=== PATIENT | female | born 1965 | race Caucasian/White ===

== ENCOUNTER 2019-12-13 10:49 | Outpatient (REF) | payer OTHER, SELFPAY ==
[2019-12-13 13:17] LABS: Alanine Aminotransferase 27 U/L (0-31); Albumin Level 4.4 g/dL (3.5-5.0); Alkaline Phosphatase 70 U/L (39-117); Anion Gap 16 (12-20); Aspartate Amino Transferase 27 U/L (5-31); Bilirubin Total 0.7 mg/dL (0.0-1.0); Blood Urea Nitrogen 16 mg/dL (9-16); Calcium 9.6 mg/dL (8.4-10.2); Carbon Dioxide 25 mmol/L (22-29); Chloride 102 mmol/L (96-108); Cholesterol 206 mg/dL; Estimated Glomerular Filt Rate > 60; Glucose Fasting 107 mg/dL (60-99); HDL Cholesterol 103 mg/dL; LDL Cholesterol Calculated 72 mg/dl; Potassium 4.4 mmol/l (3.3-5.1); Sodium 139 mmol/L (135-145); Total Protein 6.9 g/dL (6.5-8.0); Triglycerides 156 mg/dL
[2019-12-13 13:34] LABS: Free T4 (Free Thyroxine) 1.05 ng/dL (0.71-1.85); Thyroid Stimulating Hormone 0.56 mIU/mL (0.32-4.0)
[2019-12-13 13:54] LABS: Folate 6.8 ng/mL (> or = 4.0); Vitamin B12 245 pg/mL (200-900)
== END 2019-12-13 10:50 | disposition home or self-care (01) ==
LOC: HO.MANLDS 10:49
PROVIDERS: PCP Internal Medicine; Visit Provider Internal Medicine
DX: Z00.01 Encounter for general adult medical examination with abnormal findings (principal); E03.9 Hypothyroidism, unspecified
CPT/HCPCS: 80053; 80061; 82306; 82607; 82746; 83735; 84439; 84443

== ENCOUNTER 2021-09-10 15:11 | Outpatient (REF) | payer OTHER, SELFPAY ==
[2021-09-10 19:04] LABS: MANUAL DIFF FLAG NO
[2021-09-10 19:05] LABS: Basophils Percent Auto 0.2 % (0-2); Eosinophils Absolute Auto 0.1 X10*3/uL (0.0-0.4); Eosinophils Percent Auto 0.7 % (0-4); Hematocrit 47.3 % (37.0-47.0); Imm Gran Abs Auto 0.04 X10*3/uL (0.00-0.03); Imm Gran Pct Auto 0.5 % (0.0-0.4); Lymphocytes Percent Auto 12.1 % (20-40); Mean Corpuscular HGB Conc 33.8 g/dl (31.0-35.0); Mean Corpuscular Hemoglobin 32.7 pg (27.0-33.0); Mean Corpuscular Volume 96.7 fL (80.0-98.0); Mean Platelet Volume 10.2 fL (9.4-12.3); Monocytes Absolute Auto 0.3 X10*3/uL (0.1-1.2); Monocytes Percent Auto 3.7 % (2-11); Neutrophils Percent Auto 82.8 % (45-73); Platelet Count 238 X10*3/uL (160-400); Red Blood Count 4.89 X10*6/uL (4.20-5.50); White Blood Count 8.5 X10*3/uL (4.8-10.8)
[2021-09-10 19:16] LABS: Alanine Aminotransferase 62 U/L (0-31); Albumin Level 4.4 g/dL (3.5-5.0); Alkaline Phosphatase 81 U/L (39-117); Anion Gap 14 (12-20); Aspartate Amino Transferase 55 U/L (5-31); Bilirubin Total 0.6 mg/dL (0.0-1.0); Blood Urea Nitrogen 14 mg/dL (9-16); Calcium 9.1 mg/dL (8.4-10.2); Carbon Dioxide 24 mmol/L (22-29); Chloride 104 mmol/L (96-108); Cholesterol 214 mg/dL; Estimated Glomerular Filt Rate > 60; Glucose Random 101 mg/dL (60-115); HDL Cholesterol 97 mg/dL; LDL Cholesterol Calculated 85 mg/dl; Potassium 4.4 mmol/L (3.3-5.1); Sodium 138 mmol/L (135-145); Total Protein 6.9 g/dL (6.5-8.0); Triglycerides 161 mg/dL
[2021-09-10 19:36] LABS: Free T4 (Free Thyroxine) 1.03 ng/dL (0.71-1.85); Thyroid Stimulating Hormone 0.96 uIU/mL (0.32-4.0)
== END 2021-09-10 15:12 | disposition home or self-care (01) ==
LOC: HO.MANLDS 15:11
PROVIDERS: Visit Provider Physician Assistant
DX: Z00.00 Encounter for general adult medical examination without abnormal findings (principal)
CPT/HCPCS: 36415; 80053; 80061; 84439; 84443; 85025

== ENCOUNTER 2023-04-19 14:47 | Outpatient (REF) | payer OTHER, SELFPAY ==
[2023-04-19 17:25] LABS: MANUAL DIFF FLAG NO
[2023-04-19 17:42] LABS: Basophils Percent Auto 0.4 % (0-2); Eosinophils Percent Auto 0.3 % (0-4); Hemoglobin 16.5 g/dl (12.0-16.0); Imm Gran Abs Auto 0.04 X10*3/uL (0.00-0.03); Imm Gran Pct Auto 0.5 % (0.0-0.4); Lymphocytes Absolute Auto 1.7 X10*3/uL (1.2-4.9); Lymphocytes Percent Auto 21.9 % (20-40); Mean Corpuscular HGB Conc 34.4 g/dl (31.0-35.0); Mean Corpuscular Hemoglobin 32.3 pg (27.0-33.0); Mean Corpuscular Volume 93.9 fL (80.0-98.0); Monocytes Absolute Auto 0.5 X10*3/uL (0.1-1.2); Monocytes Percent Auto 6.3 % (2-11); Neutrophils Absolute Auto 5.5 x10*3/uL (2.0-8.3); Neutrophils Percent Auto 70.6 % (45-73); Platelet Count 205 X10*3/uL (160-400); Red Blood Count 5.11 X10*6/uL (4.20-5.50); Red Cell Distribution Width 11.9 % (11.0-16.0); White Blood Count 7.8 X10*3/uL (4.8-10.8)
[2023-04-19 18:01] LABS: Alanine Aminotransferase 22 U/L (0-31); Albumin Level 4.7 g/dL (3.5-5.0); Alkaline Phosphatase 74 U/L (39-117); Anion Gap 16 (12-20); Aspartate Amino Transferase 21 U/L (5-31); Bilirubin Total 0.7 mg/dL (0.0-1.0); Blood Urea Nitrogen 16 mg/dL (9-16); C Reactive Protein < 0.10 mg/dL (< or = 0.50); Carbon Dioxide 25 mmol/L (22-29); Chloride 103 mmol/L (96-108); Cholesterol 246 mg/dL (<200); Estimated Glomerular Filt Rate > 60; Glucose Random 91 mg/dL (60-115); HDL Cholesterol 133 mg/dL (>40); Iron 118 mcg/dL (30-160); LDL Cholesterol Calculated 99 mg/dL (<100); Percent Iron Saturation 43 % (15-50); Potassium 4.2 mmol/L (3.3-5.1); Sodium 140 mmol/L (135-145); Total Iron Binding Capacity 277 mcg/dL (228-428); Total Protein 7.1 g/dL (6.5-8.0); Triglycerides 74 mg/dL (<150); Unsaturated Iron Binding 159 ug/dL
[2023-04-19 18:02] LABS: Parathyroid Hormone Intact 41.4 pg/mL (8.7-77.1)
[2023-04-19 18:12] LABS: Cortisol Random 2.7 ug/dL
[2023-04-19 18:13] LABS: Erythrocyte Sedimentation Rate 1 MM/HR (0-20)
[2023-04-19 18:23] LABS: Ferritin 159 ng/mL (10-250); Free T4 (Free Thyroxine) 1.12 ng/dL (0.71-1.85); Insulin 4 uU/mL (2-29); Thyroid Stimulating Hormone 0.31 uIU/mL (0.32-4.0); Vitamin D 25-OH Total 38.4 ng/mL (>30)
[2023-04-19 18:25] LABS: Folate 10.6 ng/mL (> or = 4.0); Vitamin B12 313 pg/mL (200-900)
[2023-04-20 07:16] LABS: Estimated Average Glucose 91 mg/dL; Hemoglobin A1c % 4.8 % (<6.0)
[2023-04-20 18:04] LABS: Thyroid Peroxidase Antibodies <1 IU/mL (<9)
[2023-04-21 06:23] LABS: Triiodothyronine T3 Total 103 ng/dL (76-181)
[2023-04-25 21:42] LABS: IGF-1 (Somatomedin C) 163 ng/mL (50-317); IGF-1 Z Score (Female) 0.4 SD (-2.0 - +2.0)
== END 2023-04-19 14:48 | disposition home or self-care (01) ==
LOC: HO.MANLDS 14:47
PROVIDERS: Visit Provider Physician Assistant
DX: Z00.00 Encounter for general adult medical examination without abnormal findings (principal); E55.9 Vitamin D deficiency, unspecified; E53.8 Deficiency of other specified B group vitamins; R53.83 Other fatigue
CPT/HCPCS: 36415; 80053; 80061; 82306; 82533; 82607; 82728; 82746; 83036; 83525; 83540; 83970; 84305; 84439; 84443; 84480; 85025; 85652; 86140; 86376

== ENCOUNTER 2023-04-22 12:43 | Outpatient (REF) | payer OTHER, SELFPAY ==
[2023-04-23 19:38] LABS: Homocysteine 13.1 umol/L (<10.4)
== END 2023-04-22 12:44 | disposition home or self-care (01) ==
LOC: HO.LAB 12:43
PROVIDERS: PCP Internal Medicine; Visit Provider Physician Assistant
DX: Z00.00 Encounter for general adult medical examination without abnormal findings (principal); E55.9 Vitamin D deficiency, unspecified; E53.8 Deficiency of other specified B group vitamins; R53.83 Other fatigue
CPT/HCPCS: 36415; 83090

== ENCOUNTER 2023-04-28 10:35 | Outpatient (REF) | payer OTHER, SELFPAY ==
[2023-04-28 15:10] LABS: Free T4 (Free Thyroxine) 0.73 ng/dL (0.71-1.85); Thyroid Stimulating Hormone 0.45 uIU/mL (0.32-4.0)
[2023-04-29 07:39] LABS: Triiodothyronine T3 Free 3.3 pg/mL (2.3-4.2)
== END 2023-04-28 10:36 | disposition home or self-care (01) ==
LOC: HO.MANLDS 10:35
PROVIDERS: Visit Provider Physician Assistant
DX: E05.90 Thyrotoxicosis, unspecified without thyrotoxic crisis or storm (principal)
CPT/HCPCS: 36415; 84439; 84443; 84481

== ENCOUNTER 2023-05-24 08:30 | Outpatient (REF) | payer OTHER, SELFPAY ==
[2023-05-24 14:18] LABS: Free T4 (Free Thyroxine) 0.67 ng/dL (0.71-1.85); Thyroid Stimulating Hormone 5.95 uIU/mL (0.32-4.0)
== END 2023-05-24 08:31 | disposition home or self-care (01) ==
LOC: HO.MANLDS 08:30
PROVIDERS: Visit Provider Physician Assistant
DX: E05.90 Thyrotoxicosis, unspecified without thyrotoxic crisis or storm (principal)
CPT/HCPCS: 36415; 84439; 84443

== ENCOUNTER 2023-05-26 11:48 | Outpatient (REF) | payer OTHER, SELFPAY ==
[2023-05-26 14:11] LABS: C Reactive Protein < 0.10 mg/dL (< or = 0.50); Calcium 10.6 mg/dL (8.4-10.2); Phosphorus 2.6 mg/dL (2.7-4.5)
[2023-05-26 14:23] LABS: Erythrocyte Sedimentation Rate 1 MM/HR (0-20); Parathyroid Hormone Intact 25.9 pg/mL (8.7-77.1)
[2023-05-26 14:30] LABS: Free T4 (Free Thyroxine) 0.92 ng/dL (0.71-1.85); Thyroid Stimulating Hormone 2.34 uIU/mL (0.32-4.0)
[2023-05-27 09:18] LABS: Triiodothyronine T3 Free 3.4 pg/mL (2.3-4.2)
[2023-05-27 12:04] LABS: Thyroid Peroxidase Antibodies <1 IU/mL (<9)
[2023-05-31 16:18] LABS: Thyroid Stimulating Immunoglob <89 % baseline (<140)
== END 2023-05-26 11:49 | disposition home or self-care (01) ==
LOC: HO.MANLDS 11:48
PROVIDERS: Visit Provider Physician Assistant
DX: E05.90 Thyrotoxicosis, unspecified without thyrotoxic crisis or storm (principal)
CPT/HCPCS: 36415; 82310; 83970; 84100; 84439; 84443; 84445; 84481; 85652; 86140; 86376

== ENCOUNTER 2023-06-02 08:59 | Outpatient (REF) | payer OTHER, SELFPAY ==
[2023-06-02 14:50] LABS: Alanine Aminotransferase 29 U/L (0-31); Albumin Level 4.1 g/dL (3.5-5.0); Alkaline Phosphatase 73 U/L (39-117); Anion Gap 14 (12-20); Aspartate Amino Transferase 32 U/L (5-31); Bilirubin Total 0.6 mg/dL (0.0-1.0); Blood Urea Nitrogen 19 mg/dL (9-16); Calcium 8.8 mg/dL (8.4-10.2); Carbon Dioxide 24 mmol/L (22-29); Chloride 106 mmol/L (96-108); Estimated Glomerular Filt Rate > 60; Glucose Random 60 mg/dL (60-115); Phosphorus 3.6 mg/dL (2.7-4.5); Potassium 3.7 mmol/L (3.3-5.1); Sodium 140 mmol/L (135-145); Total Protein 6.3 g/dL (6.5-8.0); Vitamin D 25-OH Total 33.6 ng/mL (>30)
== END 2023-06-02 09:00 | disposition home or self-care (01) ==
LOC: HO.MANLDS 08:59
PROVIDERS: Visit Provider Physician Assistant
DX: E83.52 Hypercalcemia (principal)
CPT/HCPCS: 36415; 80053; 82306; 83735; 83970; 84100

== ENCOUNTER 2024-02-07 08:52 | Outpatient (AMB) | payer OTHER, SELFPAY ==
--- NOTE | 2024-02-07 08:55 | HO.SPINEOV ---
Vital Signs 02/07/24 08:57 Height 4 ft 11.5 in Weight 130 lb BMI 25.8 Intake Visit Reasons: spinal stenosis lumbar/spondolyosis Intake Note: Mrs. Gallegos is here today c/o low back pain. 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 At 1 point is radiating into her left butt cheek. She was moving a table few months back and got a significant flare-up. Currently she does not have any significant pain radiating down into her legs the primary symptom is back pain and buttock pain. It can affect her activity and her ability to stand for long periods of time. She does not get any neurogenic claudicating symptoms. 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 She is taking meloxicam and as mentioned she takes prednisone. She had been weaning herself down on the prednisone but given the amount of symptoms and flare-up of the pain in her back she has been maintaining on 10 mg daily. She did see Dr. Carpenter at [facility] at 1 point and he recommended she do a brace but would not want her an MRI. Ultimately she got the [facility] where she was seen and evaluated, MRI done showing a grade 2 spondylolisthesis at L4-5 with severe stenosis. She was originally referred to Dr. Mcdaniel at [facility], but the appointment has not yet been scheduled. A friend of hers at surgery with Dr. Chavarria or new him from the office and she came to see us for an evaluation. She was just in the emergency room over the weekend, prescribed morphine, Valium and lidocaine patches. PMH: Positive for rheumatoid arthritis diagnosed about 10 years ago, she has been chronically on prednisone, history of granulomatous polyangiitis. This presented itself as lung disease, with respiratory symptoms. She has been on a number of different medications to control the autoimmune reaction but has been well controlled with Rituxan. She takes 1 injection every 6 months. She also has history of hypothyroidism and she is on levothyroxine. She has had bunionectomies, cataract surgery, knee surgery, meniscus surgery. Denies any history of heart disease, liver disease, kidney disease, major abdominal surgeries, bleeding disorders, blood clots etc.. Social hx: She drinks a few glasses of wine a night but no marijuana or recreational drugs. She does not smoke cigarettes. Medications: Rituxan every 6 months, her last dose was in November, prednisone, meloxicam, levothyroxine Allergies: Enbrel and Imuran Physical exam: She appears very uncomfortable, constantly changing positions. Has a hard time sitting in a chair, keeps leaning from 1 side to the next. She has a hard time participating in a motor exam secondary to pain. Even in the upper extremities she can get back pain with pushing and pulling during my exam. She seems to have good strength in all major muscle groups but again I could not do a thorough test. Reflexes 3+ and symmetric, no Giarldo's sign, she may have a beat of clonus in her left ankle. Patellar reflexes 3+. Imaging review: There is a lumbar MRI as well as lumbar x-rays and a CT done at [facility] from January 2024 showing a grade 2 spondylolisthesis at L4-5 with severe central canal stenosis, she also has a mild disc bulging at L5-S1. Flexion-extension x-rays show increased translation from grade 2 to borderline grade 3 with standing and flexion. Impression: 58-year-old female presents to the office today self-referred for evaluation of back pain and buttock pain that has been going on for the last year, worse over the last few months in the last few weeks. She has a history of rheumatoid arthritis and granulomatous polyangiitis that have been relatively stable on chronic prednisone and Rituxan. She has a grade 2 spondylolisthesis was worsens with flexion and extension showing us that it is unstable and would be a good source to explain her back pain and buttock pain. Typically this is something Dr. Chavarria would treat with an oblique lumbar interbody fusion. I did review that procedure with her at length as well as risks, recovery etc.. She is going to take some time to think about it, she would like to see at [facility] and possibly someone in [place]. Once I finalize the plan with Dr. Chavarria I will call her. The patient was complaining of some numbness of her chest and arm pain, so I think we should also get a cervical MRI. I will update her on that when I call her as well. We did talk about the fact that she is coming down off her Rituxan currently, her last dose was November and it has a 32 day half-life so the 3 month point would be just about mid February to late February where she would have about 75% of the drug cleared out of her system. This would help minimize infection and complications. Thank you for allowing us to care for your patient. The total time spent with this visit with this patient was 45 minutes reviewing history, physical exam, lumbar imaging review, and implementation of treatment plan or further diagnostic testing Pato Chavarria MD,PhD [facility] Medications: New lidocaine 4% 1 patch topical BID PRN 30 ea 0RF pain Coding Level of Care Code New Pt Level 4 (51934) Diagnoses Spondylolisthesis, lumbar region M43.16
[2024-02-07 08:57] VITALS: BMI 25.8
--- OUTSIDE RECORDS SUMMARY | 2024-02-07 09:03 | XMS_ITS ---
Author Organization [facility] Address [address] [address] Care Team Providers Care Certified Driver Examiner Name Role Phone Austin Flores DO Primary Care Provider MADDIE Ghosh Unavailable [phone] ALLERGIES Allergen (clinical drug ingredient) Drug/Non Drug Allergy documented on EMR Reaction Allergy Type Onset Date Status etanercept Enbrel Unknown Drug Allergy Active azathioprine Imuran Unknown Drug Allergy Acti ve REASON FOR VISIT f/u to orthotics MEDICATIONS Medication SIG (Take, Route, Frequency, Duration) Notes Start Date End Date Status Labetalol HCl 100 MG 1 tablet Orally Twi ce a day Not-Taking Levothyroxine Sodium 75 MCG 1 tablet in the morning on an empty stomach Orally Once a day Active Doxycycline Monohydrate 50 MG 2 capsules Orally Once a day Not-Taking Meloxicam 15 MG 1 tablet Orally Once a day Active predniSONE 10 MG 1 tablet Orally Once a day 7MG Active LORazepam 0.5 MG 1 tablet at bedtime as needed Orally Once a day Not-Taking Loteprednol Etabonate 0.5 % 1 drop into affected eye Ophthalmic Four times a day Not-Taking levoFLOXacin 500 MG 1 tablet Orally Once a day Not-Taking Vinizhqb-Fceddjloj-Hzflzml h 3.5-68087-7.1 1 drop into affected eye Ophthalmic Four times a day Not-Taking Nystatin 602661 UNIT/ML 4 mL Mouth/Throa t Four times a day Not-Taking Tobramycin-dexAMETHasone 0.3-0.1 % as directed Ophthalmic Not-T aking Xiidra 5 % 1 drop into affected eye Ophthalmic Twice a day Not-Taking Sulfamethoxazole-Trimethop rim 800-160 MG 1 tablet Orally Twice a day Not-Taking Ondansetron 4 MG 1 tablet on the tong ue and allow to dissolve Orally Once a day Not-Taking oxyCODONE HCl 5 MG 1 capsule as needed Orally every 6 hrs Not-Taking Albuterol Sulfate HFA 108 (90 Base) MCG/ACT 1 puff as needed Inhalation every 4 hrs Active Cequa 0.09 % 1 drop into affected eye Ophthalmic every 12 hrs Active VITAL SIGNS Weight 132.0 lbs 08/06/2023 Height 4ft 11.5in in 08/06/2023 BMI 26.21 kg/m2 08/06/2023 Heart Rate 99 /min 08/06/2023 Temperature 97.1 degrees Fahrenheit 08/06/19 24 Respiratory Rate 12 /min 08/06/2023 Encounters Encounter Location Date Provider Diagnosis [facility] [address] [facility] [address] [place] [address] 08/06/2023 MADDIE WEN Rheumatoid arthritis without rheumatoid factor, right ankle and foot M06.071 ; Rheumatoid arthritis without rheumatoid factor, left ankle and foot M06.072 ; Acquired adductovarus rotation of toe, 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 ; Adductovarus rotation of toe, acquired, left M20.5X2 ; Pain in right foot M79.671 and Pain in left foot M79.672 ASSESSMENTS Encounter Date Diagnosis Assessment Notes Treatment Notes Treatment Clinical Notes Section Notes 08/06/2023 Rheumatoid arthritis without rheumatoid factor, right ankle and foot (ICD-10 - M06.071) We discussed she has osteopenia from her chronic prednisone use. I reviewed that she has erosive changes around her lesser metatarsophalangeal joints with tibial deviation of the toes bilaterally. She also has arthritis of her metatarsocuneiform joints on the right foot. We discussed that the most important factor to her foot pain is control over her autoimmune conditions. She is currently not in remission. I gave the patient recommendations for rheumatologists for vasculitis and seronegative arthropathies. The patient voices frustration at this aspect and states she has tried many treatments for these conditions without remission. I did not recommend further foot surgery on this patient until her autoimmune conditions are in remission. I examined her current orthotics. We discussed she still has the metatarsus adductus on the left foot, though improved. I recommended an additional adjustment for the left side. RX for an adjustment given to the patient for the left orthotic. We discussed orthotics and spacers are most useful. I also recommended she continue with yoga. She is in agreement with this plan. 08/06/2023 Rheumatoid arthritis without rheumatoid factor, left ankle and foot (ICD-10 - M06.072) 08/06/2023 Acquired adductovarus rotation of toe, right (ICD-10 - M20.5X1) 08/06/2023 Adductovarus rotation of toe, acquired, left (ICD-10 - M20.5X2) 08/06/2023 Pain in right foot (ICD-10 - M79.671) 08/06/2023 Pain in left foot (ICD-10 - M79.672) PLAN OF TREATMENT Treatment Notes Assessment Notes Rheumatoid arthritis without rheumatoid factor, right ankle and foot We discussed she has osteopenia from her chronic prednisone use. I reviewed that she has erosive changes around her lesser metatarsophalangeal joints with tibial deviation of the toes bilaterally. She also has arthritis of her metatarsocuneiform joints on the right foot. We discussed that the most important factor to her foot pain is control over her autoimmune conditions. She is currently not in remission. I gave the patient recommendations for rheumatologists for vasculitis and seronegative arthropathies. The patient voices frustration at this aspect and states she has tried many treatments for these conditions without remission. I did not recommend further foot surgery on this patient until her autoimmune conditions are in remission. I examined her current orthotics. We discussed she still has the metatarsus adductus on the left foot, though improved. I recommended an additional adjustment for the left side. RX for an adjustment given to the patient for the left orthotic. We discussed orthotics and spacers are most useful. I also recommended she continue with yoga. She is in agreement with this plan. Next Appt Details Follow Up: prn, Reason: Progress Notes * Honey PECKaDOB:1965 ([age] yo F)Acc No.[id number]:08/06/2023 Progress Note Patient:??Bharati PECK Provider:??Maddie Wen DPM :1965?Age:57 Y?Sex:Fe male Date:08/06/2023 Address:[address] [place], [place] [id number] Pcp:Austin Flores, DO Subjective: * Chief Complaints: * ?F/u to orthotics * HPI: ?Constitutional:? This 57 y/o female with uncontrolled rheumatoid arthritis returns to my office as a follow-up to orthotics. She received her orthotics and has been wearing them for about 1 month. Overall she does feel improved when wearing the orthotics. She has noticed that her left side continues to deviate medially, causing left ankle and left lower back pain. She has a history of vasculitis and seronegative rheumatoid arthritis. She does continue to have foot pain daily, but improved. She is wondering if there is anything else she can do to help her feet. * ROS:?GENERAL: Pt denies nausea, fever, vomiting, chills, or shortness of breath. Pt in NAD. ALLERGY: patient denies any new allergy HEME/ONC: patient denies any bleeding or clotting disorders, has vascullitis CARDIOLOGY: pt denies chest pain, palpitations LUNGS: pt denies shortness of breath ABDOMEN: patient denies any bloating, abdominal pain, or swelling MUSCULOSKELETAL: See HPI, multiple joint pains SKIN: see HPI, otherwise no lesions, rash or itching NEURO: No persistent headache, weakness or numbness PSYCH: patient is tearful and frustrated during today's visit The remainder of the review of systems is noncontributory. * Medical History:?? * Surgical History:??colonosco py 05/16/2018bilateral foot surgery unionectomy 1998adenoidectomy bilateral cataract surgery right knee surgery 2 eye surgeries for lazy eyes tubes in ears * Hospitalization/Major Diagno stic Procedure:??vaginal delivery (boy) 1995COVID pneumonia 06/2022 * Family History:??Father: hyp ertension, Afib.??Mother: thyroid disease, pacemaker.?? * Social History:?Tobacco: former smoker Alcohol: yes, weekends. * Medications:??TakingpredniSO NE 10 MG Tablet 1 tablet Orally Once a day , Notes to Pharmacist: 7MGMeloxicam 15 MG Tablet 1 tablet Orally Once a day Levothyroxine Sodium 75 MCG Tablet 1 tablet in the morning on an empty stomach Orally Once a day Cequa 0.09 % Solution 1 drop into affected eye Ophthalmic every 12 hrs Albuterol Sulfate HFA 108 (90 Base) MCG/ACT Aerosol Solution 1 puff as needed Inhalation every 4 hrs Taking predniSONE 10 MG Tablet 1 tablet Orally Once a day , Notes to Pharmacist: 7MGTaking Meloxicam 15 MG Tablet 1 tablet Orally Once a day Taking Levothyroxine Sodium 75 MCG Tablet 1 tablet in the morning on an empty stomach Orally Once a day Taking Cequa 0.09 % Solution 1 drop into affected eye Ophthalmic every 12 hrs Taking Albuterol Sulfate HFA 108 (90 Base) MCG/ACT Aerosol Solution 1 puff as needed Inhalation every 4 hrs Not-TakingLabetalol HCl 100 MG Tablet 1 tablet Orally Twice a day Xiidra 5 % Solution 1 drop into affected eye Ophthalmic Twice a day Tobramycin-dexAMETHasone 0.3-0.1 % Suspension as directed Ophthalmic Sulfamethoxazole-Trimethoprim 800-160 MG Tablet 1 tablet Orally Twice a day oxyCODONE HCl 5 MG Capsule 1 capsule as needed Orally every 6 hrs Ondansetron 4 MG Tablet Disintegrating 1 tablet on the tongue and allow to dissolve Orally Once a day Nystatin 937475 UNIT/ML Suspension 4 mL Mouth/Throat Four times a day Badcvojs-Vomkfnkvh-Wnxreglb 3.5-81559-7.1 Suspension 1 drop into affected eye Ophthalmic Four times a day Loteprednol Etabonate 0.5 % Suspension 1 drop into affected eye Ophthalmic Four times a day LORazepam 0.5 MG Tablet 1 tablet at bedtime as needed Orally Once a day levoFLOXacin 500 MG Tablet 1 tablet Orally Once a day Doxycycline Monohydrate 50 MG Capsule 2 capsules Orally Once a day Medication List reviewed and reconciled with the patientNot-Taking Labetalol HCl 100 MG Tablet 1 tablet Orally Twice a day Not-Taking Xiidra 5 % Solution 1 drop into affected eye Ophthalmic Twice a day Not-Taking Tobramycin-dexAMETHasone 0.3-0.1 % Suspension as directed Ophthalmic Not-Taking Sulfamethoxazole-Trimethoprim 800-160 MG Tablet 1 tablet Orally Twice a day Not-Taking oxyCODONE HCl 5 MG Capsule 1 capsule as needed Orally every 6 hrs Not-Taking Ondansetron 4 MG Tablet Disintegrating 1 tablet on the tongue and allow to dissolve Orally Once a day Not-Taking Nystatin 332105 UNIT/ML Suspension 4 mL Mouth/Throat Four times a day Not-Taking Yyrgmcxz-Efiqrspxy-Bthlzwsz 3.5-73194-4.1 Suspension 1 drop into affected eye Ophthalmic Four times a day Not-Taking Loteprednol Etabonate 0.5 % Suspension 1 drop into affected eye Ophthalmic Four times a day Not-Taking LORazepam 0.5 MG Tablet 1 tablet at bedtime as needed Orally Once a day Not-Taking levoFLOXacin 500 MG Tablet 1 tablet Orally Once a day Not-Taking Doxycycline Monohydrate 50 MG Capsule 2 capsules Orally Once a day Medication List reviewed and reconciled with the patient * Allergies:??EnbrelImuranno[A llergies Verified] Objective: * Vitals:??Wt:132.0lbs, Ht: 4f t 11.5in, BMI:26.21Index, HR:99/min, Temp:97.1F, RR:12/min, Ht-cm: 151.13, Wt-k.87 kg. * Examination: ?General Examination: ?GENERAL: Patient appears well nourished, with NAD. Patient is tearful during today's visit. ?VASCULAR: Dorsalis pedis pulses are 2/4 bilaterally and Posterior tibial pulses are 2/4bilaterally. Capillary filling time within normal limits the digits. No pallor on elevation or rubor on dependency. Each foot temperature is within normal limits. ?NEUROLOGICAL: Sharp/dull sensation intact bilaterally, protective sensation intact 10/10 with 5.07 [place] Leila bilaterally, vibratory sensation with tuning fork intact to the tibial tuberosity bilaterally, position sense intact bilaterally to the tibial tuberosity. ?ORTHOPEDIC: Good muscle strength 4+/5 of all flexors and extensors. Dorsi flexion of ankle ,0 degrees, plantar flexion WNL. No muscle atrophy. Hallux limitus bilaterally. Dorsomedial bony prominence on the right foot. Adductovarus rotation of toes 2,3,4,5 left foot, 3,4,5 left foot. Pain on palpation of submetatarsal 2,3,4 bilaterally. No pain on ROM. ?DERMATOLOGICAL: No masses, openings, or skin lesions noted. Normal skin temperature, normal skin turgor. ?BIOMECHANICS: STJ ROM limited, MTJ ROM limited, 1st MPJ ROM limited. On weight bearing, metatarsus adductus position of toes 3,4,5, bilaterally, 2 left foot, hallux limitus. s/p bilateral Lapidus bunionectomies. Metatarsus adductus left foot. ?SHOES: boots with OTC inserts. Assessment: * Assessment: 1.??Rheumatoid arthritis wit hout rheumatoid factor, right ankle and foot - M06.071 (Primary)??2.??Rheumatoid arthritis without rheumatoid factor, left ankle and foot - M06.072??3.??Acquired adductovarus rotation of toe, right - M20.5X1??4.??Adductovarus rotation of toe, acquired, left - M20.5X2??5.??Pain in right foot - M79.671??6.??Pain in left foot - M79.672?? Plan: * Treatment: * Procedure Codes:?? * Follow Up:??prn * Billing Information: * Visit Code:?? 49707 Office Visit, Est Pt., Level 3. * Procedure Codes:?? * Sign off status: Completed true * Provider:??Maddie Wen DPM Date: ??08/06/2023 History and Physical Notes * HPI (History of Present Illness) Category Sub-Category Detail Notes Category Not es Constitutional This 57 y/o f emale with uncontrolled rheumatoid arthritis returns to my office as a follow-up to orthotics. She received her orthotics and has been wearing them for about 1 month. Overall she does feel improved when wearing the orthotics. She has noticed that her left side continues to deviate medially, causing left ankle and left lower back pain. She has a history of vasculitis and seronegative rheumatoid arthritis. She does continue to have foot pain daily, but improved. She is wondering if there is anything else she can do to help her feet. Examination Category Sub-Category Detail Notes Category Not es General Examination GENERAL: Patient appears well nourished, with NAD. Patient is tearful during today's visit. VASCULAR: Dorsalis pedis pulses are 2/4 bilaterally and Posterior tibial pulses are 2/4bilaterally. Capillary filling time within normal limits the digits. No pallor on elevation or rubor on dependency. Each foot temperature is within normal limits. NEUROLOGICAL: Sharp/dull sensation intact bilaterally, protective sensation intact 10/10 with 5.07 Richmond Leila bilaterally, vibratory sensation with tuning fork intact to the tibial tuberosity bilaterally, position sense intact bilaterally to the tibial tuberosity. ORTHOPEDIC: Good muscle strength 4+/5 of all flexors and extensors. Dorsi flexion of ankle ,0 degrees, plantar flexion WNL. No muscle atrophy. Hallux limitus bilaterally. Dorsomedial bony prominence on the right foot. Adductovarus rotation of toes 2,3,4,5 left foot, 3,4,5 left foot. Pain on palpation of submetatarsal 2,3,4 bilaterally. No pain on ROM. DERMATOLOGICAL: No masses, openings, or skin lesions noted. Normal skin temperature, normal skin turgor. BIOMECHANICS: STJ ROM limited, MTJ ROM limited, 1st MPJ ROM limited. On weight bearing, metatarsus adductus position of toes 3,4,5, bilaterally, 2 left foot, hallux limitus. s/p bilateral Lapidus bunionectomies. Metatarsus adductus left foot. SHOES: boots with OTC inserts
--- OUTSIDE RECORDS SUMMARY | 2024-02-07 09:03 | XMS_ITS ---
Author Organization [facility] Address [address] [address] Care Team Providers Care Assistant Professor Of German Name Role Phone Austin Flores DO Primary Care Provider BERNADINE Ghosh [phone] REASON FOR VISIT orthotics Encounters Encounter Location Date Provider Diagnosis [facility] [address] [address] 05/28/2023 BERNADINE SANCHEZ PLAN OF TREATMENT No Information Progress Notes * Vinh PECKB:1965 ([age] yo F)Acc No.[id number]:05/28/2023 Patient:??CISCOHoneya :1965?Age:57 Y?Sex:Fe male Address:[address] [place] [phone] * true * Date:??
--- OUTSIDE RECORDS SUMMARY | 2024-02-07 09:03 | XMS_ITS ---
Author Organization [facility] Address [address] [address] Care Team Providers Care Information Technology Architect Name Role Phone Austin Flores DO Primary Care Provider BERNADINE Ghosh [phone] REASON FOR VISIT Denied Orthotics Encounters Encounter Location Date Provider Diagnosis [facility] [address] [address] 05/27/2023 BERNADINE SANCHEZ PLAN OF TREATMENT No Information Progress Notes * Vinh PECKB:1965 ([age] yo F)Acc No.[id number]:05/27/2023 Patient:??CISCOHoneya :1965?Age:57 Y?Sex:Fe male Address:[address] [place] [phone] * true * Date:??
--- OUTSIDE RECORDS SUMMARY | 2024-02-07 09:03 | XMS_ITS | Patient Health Record ---
Author Organization [facility] Address [address] [address] Care Team Providers Care Server Developer Name Role Phone Austin Flores DO Primary Care Provider BERNADINE Ghosh Unavailable [phone] ALLERGIES Allergen (clinical drug ingredient) Drug/Non Drug Allergy documented on EMR Reaction Allergy Type Onset Date Status etanercept Enbrel Unknown Drug Allergy Active azathioprine Imuran Unknown Drug Allergy Acti ve REASON FOR REFERRAL No Information MEDICATIONS Medication SIG (Take, Route, Frequency, Duration) Notes Start Date End Date Status Labetalol HCl 100 MG 1 tablet Orally Twi ce a day Not-Taking LORazepam 0.5 MG 1 tablet at bedtime as needed Orally Once a day Not-Taking Levothyroxine Sodium 75 MCG 1 tablet in the morning on an empty stomach Orally Once a day Active Loteprednol Etabonate 0.5 % 1 drop into affected eye Ophthalmic Four times a day Not-Taking Albuterol Sulfate HFA 108 (90 Base) MCG/ACT 1 puff as needed Inhalation every 4 hrs Active Doxycycline Monohydrate 50 MG 2 capsules Orally Once a day Not-Taking Cequa 0.09 % 1 drop into affected eye Ophthalmic every 12 hrs Active levoFLOXacin 500 MG 1 tablet Orally Once a day Not-Taking Tobramycin-dexAMETHasone 0.3-0.1 % as [...] as needed Orally every 6 hrs Not-Taking Meloxicam 15 MG 1 tablet Orally Once a day Active Spqwtdeu-Qpxwksllh-Hophcch h 3.5-64951-1.1 1 drop into affected eye Ophthalmic Four times a day Not-Taking predniSONE 10 MG 1 tablet Orally Once a day 7MG Active Nystatin 964347 UNIT/ML 4 mL Mouth/Throa t Four times a day Not-Taking PROBLEMS Problem Type ICD Code Onset Dates Problem Status W/U Status Risk SNOMED Code Notes Problem Rheumatoid arthritis without rheumatoid factor, right ankle and foot (M06.071) Active confirmed 53773885605610467 Problem Rheumatoid arthritis without rheumatoid factor, left ankle and foot (M06.072) Active confirmed 680689421 VITAL SIGNS Heart Rate 99 /min 08/06/2023 Temperature 97.1 degrees Fahrenheit 08/06/2023 Respiratory Rate 12 /min 08/06/2023 Height 4ft 11.5in in 08/06/2023 Weight 132.0 lbs 08/06/2023 BMI 26.21 kg/m2 08/06/2023 Encounters Encounter Location Date Provider Diagnosis [facility] [address] 03/01/2023 BERNADINE SANCHEZ Rheumatoid arthritis without rheumatoid factor, right ankle and foot M06.071 ; Rheumatoid arthritis without rheumatoid factor, left ankle and foot M06.072 ; Acquired adductovarus rotation of toe, 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 ; Adductovarus rotation of toe, acquired, left M20.5X2 ; Pain in right foot M79.671 and Pain in left foot M79.672 [facility] [address] [address] 08/06/2023 BERNADINE SANCHEZ Rheumatoid arthritis without rheumatoid factor, right ankle and foot M06.071 ; Rheumatoid arthritis without rheumatoid factor, left ankle and foot M06.072 ; Acquired adductovarus rotation of toe, 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 ; Adductovarus rotation of toe, acquired, left M20.5X2 ; Pain in right foot M79.671 and Pain in left foot M79.672 [facility] [address] [address] 03/02/2023 BERNADINE SANCHEZ [facility] [address] [address] 03/02/2023 BERNADINE SANCHEZ [facility] [address] [address] 04/28/2023 BERNADINE SANCHEZ [facility] [address] [address] 05/27/2023 BERNADINE SANCHEZ [facility] [address] [address] 05/28/2023 BERNADINE SANCHEZ ASSESSMENTS Encounter Date Diagnosis Assessment Notes Treatment Notes Treatment Clinical Notes Section Notes 03/01/2023 Rheumatoid arthritis without rheumatoid factor, right ankle and foot (ICD-10 - M06.071) This is an outpatient visit for evaluation and management of a new patient, which required appropriate review of pertinent medical history, review of any previous imaging, review of all previous records, and examination and complex decision-making. Time was 60 minutes spent in review of all these facets including face to face discussion with the patient regarding my findings and in discussion of a current and future treatment plan. I reviewed the x-rays that the patient brought in today on CD with the patient. We discussed she has osteopenia from her [...] her autoimmune conditions are in remission. I did recommend custom orthotics. RX written for custom orthotics with break in instructions and a list of DME suppliers. I recommended the patient call once she gets the orthotics and my office will schedule her an appointment 4 weeks from that date. She is in agreement with this plan. 03/01/2023 Rheumatoid arthritis without rheumatoid factor, left ankle and foot (ICD-10 - M06.072) 08/06/2023 Rheumatoid arthritis without rheumatoid factor, right [...] left ankle and foot (ICD-10 - M06.072) 03/01/2023 Acquired adductovarus rotation of toe, right (ICD-10 - M20.5X1) 03/01/2023 Adductovarus rotation of toe, acquired, left (ICD-10 - M20.5X2) 08/06/2023 Acquired adductovarus rotation of toe, right (ICD-10 - M20.5X1) 08/06/2023 Adductovarus rotation of toe, acquired, left (ICD-10 - M20.5X2) 03/01/2023 Pain in right foot (ICD-10 - M79.671) 03/01/2023 Pain in left foot (ICD-10 - M79.672) 08/06/2023 Pain in right foot (ICD-10 - M79.671) 08/06/2023 Pain in left foot (ICD-10 - M79.672) PLAN OF TREATMENT No Information Insurance Providers Payer Name Payer Address Payer Phone Subscriber Number Group Number Insured Name Patient Relationship to Insured Coverage Start Date Coverage End Date [facility] (REF REQ) [address] [place] [phone] [id number] Bharati Gallegos Self - patient is the insured MEDICAL (GENERAL) HISTORY Medical History History ICD Code hypothyroidism rheumatoid arthritis dysfunction of posterior tibial tendon depression anxiety granulomatosis with polyangiitis of ging [place] chronic granulomatous disease hypertension cobalamin deficiency mass of soft tissue lipoma of skin acute bronchitis pneumonia candidiasis of mouth hematochezia post-acute COVID-19 pain of left knee joint COVID vaccinated X 2 (Moderna) + COVID 2021 and 06/2022 Surgical History Surgery Date(Month/Year) colonoscopy 05/16/2018 bilateral foot surgery 2021 bunionectomy 1998 adenoidectomy bilateral cataract surgery right knee surgery 2 eye surgeries for lazy eyes tubes in ears Hospitalization History Reason Date(Month/Year) COVID pneumonia 06/2022 vaginal delivery (boy) 1995
--- OUTSIDE RECORDS SUMMARY | 2024-02-07 09:04 | XMS_ITS | Data Portability ---
Author Organization [facility] Home Service Address [address] [place] [address] Assessment Encounter Date Assessment Date Assessment LastModified by Organization Details LastModified Time 03/26/2023 03/26/2023 Patient agreed and verbally consents to this audio and video Telehealth appt via a secure platform [email or web address] Not available 03/26/2023 11:40:25 Plan of Treatment Reminders Order Date Submit Date Provider Last Modified By Organization Details Last Modified Time Details Appointments None recorded. Lab CMP, serum or plasma 2023 [facility], [address] [place] [address], [address], 4 11:20:33 lipid panel, blood 2023 024 [facility], [address] [place] [address], [address], 4 14:37:13 TSH + free T4, serum 2023 024 [facility], [address] [place] [address], [address], 4 11:27:26 hemoglobin A1c, QN, blood 2023 024 [facility], [address] [place] [address], [address], 4 14:37:14 iron + TIBC + ferritin, serum 2023 024 [facility], [address] [place] [address], [address], 4 14:37:13 ESR (erythrocy te sedimentat ion rate), blood 2023 [facility], [address] [place] [address], [address], 4 14:37:13 C-reactive protein, quantitati ve, serum or plasma 2023 [facility], [address] [place] [address], [address], 4 14:37:13 T3, total, serum 2023 [facility], [address] [place] [address], [address], 4 11:23:31 thyroid peroxidase (tpo) Ab, serum 2023 024 [facility], [address] [place] [address], [address], 4 14:37:13 cortisol, serum or plasma 2023 024 [facility], [address] [place] [address], [address], 4 14:37:13 insulin, serum 2023 024 [facility], [address] [place] [address], [address], 4 14:37:13 PTH (parathyro id hormone), intact + calcium, serum or plasma 2023 024 [facility], [address] [place] [address], [address], 4 14:37:14 igf-1 (insulin-l sathish growth factor), serum 2023 024 [facility], [address] [place] [address], [address], 4 11:42:28 vitamin D, 25-hydroxy , total, serum 2023 024 [facility], [address] [place] [address], 90[address], 4 14:37:14 homocystei ne, serum or plasma 2023 024 [facility], [address] [place] [address], 16[address], 4 11:46:58 vitamin B12 + folate, serum or blood 2023 024 [facility], [address] [place] [address], [address], 4 14:37:13 CBC w/ auto diff 2023 024 [facility], [address] [place] [address], 88[address], 4 14:37:14 TSH, serum or plasma 2023 024 [facility], [address] [place] [address], 533[address], 4 11:17:38 T4, free, serum 2023 024 [facility], [address] [place] [address], 89[address], 4 11:17:38 T3, free, serum or plasma 2023 024 [facility], [address] [place] [address], 67[address], 4 11:17:38 tsi (thyroid-s timulating immunoglob ulin), serum 2023 024 [facility], [address] [place] [address], 577[address], 4 11:30:40 thyroid peroxidase (tpo) Ab, serum 2023 024 [facility], [address] [place] [address], [address], 4 11:44:40 ESR (erythrocy te sedimentat ion rate), blood 2023 [facility], [address] [place] [address], 98765, 4 11:44:41 C reactive protein, QN, serum or plasma 2023 024 [facility], [address] [place] [address], 444[address], 4 11:44:41 PTH (parathyro id hormone), intact + calcium, serum or plasma 2023 024 [facility], [address] [place] [address], 47[address], 4 11:17:38 phosphorus , serum or plasma 2023 024 [facility], [address] [place] [address], 34[address], 4 11:44:41 Referral sleep medicine referral 2023 024 [facility], [address] [place] [address], [address], 4 08:10:47 endocrinol ogy referral - elevated BP, tachycardi a, hair loss, fatigue, increased anxiety, brain fog, digestion issues, loss stools, constipati on, sweats and palpitatio ns 2023 [facility] , [address] [facility], [place], [address], 11:14:38 gastroente rologist referral - Per call to [facility] at [phone], spoke to Faye Bartlett who advised no referral is required. Call reference number: [id number] 4. [address]23 [email or web address] [place] [address] [facility], [address] [place] [address], [address], 08:25:49 Procedures None recorded. Surgeries None recorded. Imaging holter monitor 2023 024 [email or web address] Not available 09:51:36 US, echocardio gram 2023 024 [email or web address] [facility], [address] [place], [address], 08:52:02 Medication Orders lorazepam 0.5 mg tablet 2023 024 [email or web address] [facility], [address] [place], [address], 09:37:20 doxycyclin e monohydrat e 100 mg capsule 2023 024 [email or web address] [facility], [address] [place], [address], 09:36:48 metronidaz ole 0.75 % topical cream 2023 024 [email or web address] [facility], [address] [place], [address], 09:37:12 lorazepam 0.5 mg tablet 2023 024 [email or web address] [facility], [address] [place], [address], 4 09:37:20 lorazepam 0.5 mg tablet 2023 024 [email or web address] [facility], [address] [place], [address], 4 09:37:20 clonidine HCl 0.1 mg tablet 2023 024 [email or web address] [facility], [address] [place], [address], 4 10:32:48 Patient TargetsNo targets recorded. Patient InstructionsNo instructions recorded. Reason for Referral Sleep Medicine Referral for Fatigue chronic fatigue, snoring, possible sleep apnea Referring Physician: Gary Llanos, Internal Medicine, Encounter Date: 04/19/2023 Endocrinology Referral for H yperthyroidism going back and forth between hypo and hyper, feels incredibly poor elevated BP, tachycardia, hair loss, fatigue, increased anxiety, brain fog, digestion issues, loss stools, constipation, sweats and palpitations Referring Physician: Gary Llanos, Internal Medicine, Encounter Date: 05/26/2023 [employer] Referral for Gastroesophageal reflux disease GERD with esophagitis, hx of B12 def, taking prilosec due to severity of symptoms Per call to [facility] at [phone], spoke to Faye Bartlett who advised no referral is required. Call reference number: [id number]. Referring Physician: Gary Llanos, Internal Medicine, Encounter Date: 07/23/2023 Results Created Date Observation Date Name Description Value Unit Range Abnormal Flag Note LastModifiedBy Organization Detail LastModifiedTime 06/17/19 24 06/17/2023 US, duple x, renal arter y No observ ation record ed. [email or web address] [facility] [address] [place], [address], 06/18/2023 09:31:08 06/28/19 24 06/17/2023 US, duple x, renal arter y No observ ation record ed. [facility] [address] [place] [address], [address], 06/28/2023 08:44:36 07/09/19 24 07/09/2019 event monit or No observ ation record ed. [address], [address], 07/12/2023 08:40:15 07/11/19 24 07/09/2023 event monit or No observ ation record ed. [address], [address], 07/12/2023 08:40:16 07/11/19 24 07/11/2023 event monit or No observ ation record ed. [email or web address] [address] [place] [address], [place], [address], 07/12/2023 08:40:16 07/13/19 24 07/13/2023 event monit or No observ ation record ed. [address], [address], 07/14/2023 08:51:22 07/29/19 24 07/27/2023 augustin r monit or No observ ation record ed. [email or web address] [place] [address], [address], 07/30/2023 10:53:26 Result Notes None recorded. Problems Name Problem SNOMED Code Status Onset Date Resolution Date Notes Provider Name and Address Organization Details Recorded Time Subclinica l hypothyroi dism 74006003 Active [address] [facility] 21:31:35 Rheumatoid arthritis 85304647 Active 2018 Not Available [facility] 21:31:35 Dysfunctio n of posterior tibial tendon 7971387021073 05 Active 2018 Not Available [facility] 3 21:31:35 Depressive disorder 92049934 Active 2018 Not Available [facility] 3 21:31:35 Anxiety 17373033 Active 2018 Not Available [facility] 3 21:31:35 Granulomat osis with polyangiit is of gingiva 542540109 Active 2018 Not Available [facility] 3 21:31:35 Chronic granulomat ous disease 906307977 Active 2018 Not Available [facility] 3 21:31:35 Labile essential hypertensi on 744003214 Active 2021 Not Available [facility] 3 21:31:35 Essential hypertensi on 16630325 Active 2021 Not Available [facility] 3 21:31:35 Hypothyroi dism 47823040 Active 2021 Not Available [facility] 3 21:31:35 Cobalamin deficiency 070705378 Active 2021 Not Available [facility] 3 21:31:35 Mass of soft tissue 972648105 Active 2022 Not Available [facility] 3 21:31:35 Lipoma of skin 256821868 Active 2022 Not Available [facility] 3 21:31:35 Acute bronchitis 44052613 Active 2022 Not Available [facility] 3 21:31:34 Pneumonia 747859621 Active 2022 Not Available [facility] 3 21:31:35 Candidiasi s of mouth 54349073 Active 2022 Not Available [facility] 3 21:31:35 Hematochez ia 875103853 Active 2022 Not Available [facility] 3 21:31:35 Post-acute COVID-19 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 2022 Not Available [facility] 3 21:31:35 Pain of left knee joint 6715494496339 07 Active 2022 GARY LLANOS PA [address],[place], [address] , [facility] 3 11:44:09 COVID-19 950859878 Active 2023 GARY LLANOS, PA [address],[place], [address] , [facility] 4 11:04:18 Rosacea 795826175 Active 2023 GARY LLANOS, PA [address],[place], [address] , [facility] 4 09:29:17 Vitamin D deficiency 20913651 Active 2023 GARY LLANOS PA [address],[place], [address] , [facility] 4 14:28:04 Fatigue 08073791 Active 2023 GARY LLANOS PA [address],[place], [address] , [facility] 4 14:30:53 Subclinica l hyperthyro idism 579506396 Active 2023 GARY LLANOS, PA [address],[place], [address] , [facility] 4 10:50:51 Hyperthyro idism 48108465 Active 2023 GARY LLANOS PA [address],[place], [address] , [facility] 4 16:08:36 Hypercalce faye 03462466 Active 2023 GARY LLANOS, PA [address],[place], [address] , [facility] 4 12:07:15 Resistant hypertensi ve disorder 4051550690953 09 Active 2023 GARY LLANOS, PA [address],[place], [address] , [facility] 4 16:20:00 Palpitatio ns 28431216 Active 2023 SONNY VILLARREAL [address], [place], [address] , [facility] 4 09:43:16 Gastroesop hageal reflux disease 587559003 Active 2023 SONNY VILLARREAL [address], [place], [address] , [facility] 4 10:22:18 Acute sinusitis 15404465 Active 2023 SONNY VILLARREAL [address], [place], [address] , [facility] 4 11:48:04 Notes:Some problems listed i n Document: #[id number] could not be added to this patient's chart. Please review this document and add these problems to the patient's chart manually as needed. Problem Notes None recorded. Procedures Surgical History Date Name Laterality Status Provider Name and Address Organization Details Recorded Time 9 Colonoscopy completed Austin Flores DO [address], [place], [address], [facility] 05/17/2018 11:22:51 Imaging Results Imaging Date Name Status LastModified by Organiz ation Details LastModified Time 06/17/2023 US, duplex, renal artery completed [email or web address] [place] [address] [facility] [address] [place] [address], [address], 06/18/2023 09:31:08 06/17/2023 US, duplex, renal artery completed [email or web address] [facility] [address] [place] [address], [address], 06/28/2023 08:44:36 07/09/2019 event monitor completed [address], [address], 07/12/2023 08:40:15 07/09/2023 event monitor completed [email or web address] [address], [address], 07/12/2023 08:40:16 07/11/2023 event monitor completed [email or web address] [facility] [address] [address], [place], [address], 07/12/2023 08:40:16 07/13/2023 event monitor completed [email or web address] [address], [address], 07/14/2023 08:51:22 07/27/2023 holter monitor completed [email or web address] [address], [address], 07/30/2023 10:53:26 Procedure Notes None recorded. Medical Equipment None Reported. Allergies Allergen ID Allergen Name Allergen Category Reaction Reaction Severity Criticality Documentation Date Start Date Code Code System Note Provider Name and Address Organization Details Recorded Time 3580 Enbrel medicatio n Not available Not available Not available 12/30/2018 [address] 1 RxNorm Alyson camacho [facility] 9 16:14:46 3581 Imuran medicatio n Not available Not available Not available 12/30/201889363 9 RxNorm Alyson camacho [facility] 9 16:14:54 Medications Name Sig Start Date Stop Date Status Note LastModified by Organization Details LastModified Time desonide 0.05 % topical cream 05/25 completed Not Available Not Available Not Available nystatin 100,000 unit/mL oral suspension TAKE 5 ML 4 TIMES A DAY BY ORAL ROUTE FOR 14 DAYS. 03/26 completed Not Available Not Available Not Available clonidine HCl 0.1 mg tablet TAKE 1 TABLET BY MOUTH TWICE A DAY NEEDED active Not Available Not Available No t Available prednisone 10 mg tablet TAKE 1 TABLET BY MOUTH EVERY DAY 07/22 completed Not Available Not Available Not Available azithromyci n 250 mg tablet 04/25 completed Not Available Not Available Not Available fluconazole 150 mg tablet 12/30 completed Not Available Not Available Not Available minocycline 100 mg capsule 12/30 completed Not Available Not Available Not Available meloxicam 15 mg tablet TAKE 1 TABLET BY MOUTH EVERY DAY active Not Available Not Available No t Available prednisone 20 mg tablet TAKE 1 TABLET BY MOUTH EVERY DAY FOR 7 DAYS 03/26 completed Not Available Not Available Not Available alendronate 70 mg tablet Take 1 tablet every week by oral route for 84 days. 09/10 completed Not Available Not Available Not Available propranolol ER 60 mg capsule,24 hr,extended release Take 1 capsule every day by oral route for 30 days. 12/19 completed Not Available Not Available Not Available prednisone 5 mg tablet TAKE 1 TABLET (5 MG TOTAL) BY MOUTH DAILY WITH BREAKFAST . TAKE ALONG WITH 1MG TABLETS active Not Available Not Available No t Available Pred Mild 0.12 % eye drops,suspe nsion 04/23 completed Not Available Not Available Not Available valacyclovi r 500 mg tablet 12/30 completed Not Available Not Available Not Available sulfamethox azole 800 mg-trimetho prim 160 mg tablet TAKE 1 TABLET BY MOUTH TWICE A DAY 03/26 completed Not Available Not Available Not Available levothyroxi ne 75 mcg tablet TAKE 1 TABLET BY MOUTH EVERY DAY 2023 active Not Available Not Available Not Avai lable ketorolac 0.5 % eye drops APPLY 1 DROP IN THE LEFT EYE TID FOR 3 WEEKS FOLLOWING SURGERY 04/23 completed Not Available Not Available Not Available mycophenola te mofetil 500 mg tablet Take 3 tablets every day by oral route. 09/10 completed Not Available Not Available Not Available BD Tuberculin Syringe 1 mL 27 x 1/2 09/10 completed Not Available Not Available Not Available doxycycline monohydrate 50 mg capsule Take 1 capsule by oral route for 30 days. 03/26 completed Not Available Not Available Not Available amoxicillin 875 mg tablet TAKE 1 TABLET BY MOUTH EVERY 12 HOURS FOR 10 DAYS active Not Available Not Available No t Available prednisolon e acetate 1 % eye drops,suspe nsion PLEASE SEE ATTACHED FOR DETAILED DIRECTION S 03/26 completed Not Available Not Available Not Available lorazepam 0.5 mg tablet Take 1 tablet 3 times a day by oral route as needed for 14 days, for VERONICA. 06/20 completed Not Available Not Available Not Available doxycycline monohydrate 50 mg tablet 03/26 completed Not Available Not Available Not Available methotrexat e sodium 2.5 mg tablet 04/23 completed Not Available Not Available Not Available prednisone 1 mg tablet TAKE 3 TABLETS (3 MG TOTAL) BY MOUTH DAILY WITH BREAKFAST . TAKE WITH 5MG PILLS FOR TAPER active Not Available Not Available No t Available doxycycline monohydrate 100 mg capsule TAKE 1 CAPSULE BY MOUTH TWICE A DAY FOR 30 DAYS 06/20 completed Not Available Not Available Not Available prednisone 2.5 mg tablet TAKE 3 TABLET BY MOUTH DAILY FOR 2 WEEKS THEN 2 TABLET DAILY 03/26 completed Not Available Not Available Not Available erythromyci n 5 mg/gram (0.5 %) eye ointment 12/11 completed Not Available Not Available Not Available nortriptyli ne 10 mg capsule PLEASE SEE ATTACHED FOR DETAILED DIRECTION S active Not Available Not Available No t Available neomycin-po lymyxin-dex ameth 3.5 mg/mL-10,00 0 unit/mL-0.1 % eye drops 03/26 completed Not Available Not Available Not Available Alrex 0.2 % eye drops,suspe nsion 09/10 completed Not Available Not Available Not Available metronidazo le 0.75 % topical cream APPLY A THIN LAYER TOPICALLY TO THE AFFECTED AREA(S) 2 TIMES PER DAY IN THE MORNING AND EVENING 06/20 completed Not Available Not Available Not Available oxycodone 5 mg capsule TAKE 1-2 CAPSULE(S ) BY MOUTH EVERY FOUR (4)- SIX (6) HOURS NEEDED FOR PAIN 03/26 completed Not Available Not Available Not Available minocycline 50 mg capsule 12/30 completed Not Available Not Available Not Available folic acid 1 mg tablet Take 1 tablet every 4-6 hours by oral route for 30 days. 04/23 completed Not Available Not Available Not Available lisinopril 5 mg tablet Take 1 tablet by mouth once a day 04/25 completed Not Available Not Available Not Available loteprednol etabonate 0.5 % eye drops,suspe nsion APPLY 1 DROP INTO BOTH EYES TWICE A DAY DIRECTED USE FOR 3 WEEKS THEN DISCONTIN UE 03/26 completed Not Available Not Available Not Available hydroxychlo roquine 200 mg tablet 12/30 completed Not Available Not Available Not Available levofloxaci n 500 mg tablet TAKE 1 TABLET BY MOUTH EVERY 24 HOURS FOR 7 DAYS 03/26 completed Not Available Not Available Not Available labetalol 100 mg tablet TAKE 1 TABLET BY MOUTH EVERY DAY 03/26 completed Not Available Not Available Not Available albuterol sulfate HFA 90 mcg/actuati on aerosol inhaler INHALE 2 PUFFS EVERY 4 HOURS BY MOUTH INTO THE LUNGS. 06/20 completed Not Available Not Available Not Available ondansetron 4 mg disintegrat ing tablet 03/26 completed Not Available Not Available Not Available sertraline 50 mg tablet TAKE 1 TABLET BY MOUTH EVERY DAY 04/23 completed Not Available Not Available Not Available amoxicillin 875 mg-potassiu m clavulanate 125 mg tablet TAKE 1 TABLET BY MOUTH EVERY 12 HOURS FOR 7 DAYS 03/26 completed Not Available Not Available Not Available tobramycin 0.3 %-dexametha sone 0.1 % eye drops,suspe nsion 03/26 completed Not Available Not Available Not Available oxycodone 5 mg tablet TAKE 1 TO 2 TABLETS BY MOUTH EVERY 4 TO 6 HOURS NEEDED FOR PAIN. MAY REQUEST PARTIALFI LL 12/19 completed Not Available Not Available Not Available methotrexat e sodium (PF) 25 mg/mL injection solution 04/23 completed Not Available Not Available Not Available Restasis 0.05 % eye drops in a dropperette INSTILL 1 DROP IN BOTH EYES TWICE DAILY 09/10 completed Not Available Not Available Not Available minocycline 50 mg tablet Take by oral route for 30 days. 04/23 completed Not Available Not Available Not Available CellCept 12/30 completed Not Available Not Available Not Available naltrexone HCl (bulk) 100 % powder active Not Available Not Available Not Available GaviLyte-G 236 gram-22.74 gram-6.74 gram-5.86 gram oral solution 12/30 completed Not Available Not Available Not Available loteprednol etabonate 0.5 % eye gel drops PLEASE SEE ATTACHED FOR DETAILED DIRECTION S active Not Available Not Available No t Available Breo Ellipta 200 mcg-25 mcg/dose powder for inhalation 12/11 completed Not Available Not Available Not Available Xiidra 5 % eye drops in a dropperette 03/26 completed Not Available Not Available Not Available fluticasone 232 mcg-salmete rol 14 mcg/actuati on breath activated powdr 12/30 completed Not Available Not Available Not Available Cequa 0.09 % eye drops in a dropperette INSTILL 1 DROP INTO BOTH EYES TWICE A DAY active Not Available Not Available No t Available BinaxNOW COVID-19 Ag Self Test kit TEST DIRECTED TODAY 03/26 completed Not Available Not Available Not Available Paxlovid 300 mg (150 mg x 2)-100 mg tablets in a dose pack TAKE 3 TABLETS BY MOUTH TWICE A DAY FOR 5 DAYS 04/19 completed Not Available Not Available Not Available Vitals Date Recorded Body height Body mass index (BMI) Body weight Heart rate Oxygen saturation Oxygen saturation in Arterial blood by Pulse oximetry Systolic blood pressure Diastolic blood pressure Provider Name and Address Organization Details Last Updated DateTime 4 147.32 cm 27.2 kg/m2 64873.0 1 g 92 /min 99 % 99 % 124 mm[Hg] 78 mm[Hg] Marianela Nicole [facility] 4 14:05:02 Date Recorded Body height Heart rate Oxygen saturation Oxygen saturation in Arterial blood by Pulse oximetry Systolic blood pressure Diastolic blood pressure Provider Name and Address Organization Details Last Updated DateTime 4 147.32 cm 112 /min 98 % 98 % 140 mm[Hg] 100 mm[Hg] Abdoul Damon [facility] 4 11:20:10 Date Recorded Body height Body mass index (BMI) Body weight Heart rate Oxygen saturation Oxygen saturation in Arterial blood by Pulse oximetry Systolic blood pressure Diastolic blood pressure Provider Name and Address Organization Details Last Updated DateTime 4 147.32 cm 27.4 kg/m2 92781.6 g 87 /min 97 % 97 % 128 mm[Hg] 80 mm[Hg] Marianela Nicole [facility] 4 09:38:37 Date Recorded Body height Body mass index (BMI) Body weight Heart rate Oxygen saturation Oxygen saturation in Arterial blood by Pulse oximetry Systolic blood pressure Diastolic blood pressure Provider Name and Address Organization Details Last Updated DateTime 4 147.32 cm 27.2 kg/m2 27614.0 1 g 77 /min 98 % 98 % 134 mm[Hg] 86 mm[Hg] Sheryl Jeronimo MA [facility] 4 10:07:55 Social History Question Answer Notes LastModified by Organizat ion Details LastModified Time Tobacco Smoking Status Former Smoker Not Available [facility] 12/26/2019 03:36:23 What Was The Date Of Your Most Recent Tobacco Screening? 07/23/2023 [email or web address] Information not available 07/23/2023 Do You Or Have You Ever Used Any Other Forms Of Tobacco Or Nicotine? No Information not available 10/08/2021 Sex: Unknown Functional Status None recorded. Mental Status None recorded. Family History Nothing Reported. Medical History Condition Response Coronary Artery Disease N Gout N Other N Kidney Stones N Blood Diseases N Blood Transfusion N Breast Cancer N Lung Disease N Depression N COPD N Defects or Inherited Disease N Anxiety Disorder N Muscle, Joint, or Bone Problems N Obesity N Vision or Eye Problems N Arthritis N Infertility N Polyps N Mental Disorder N Cancer N Stroke N Varicosities N Endometriosis N Bladder or Kidney Problems N High Cholesterol N Liver Disease N Fibromyalgia N Headaches N Kidney Disease N Allergies/Hayfever N Heart Problems N Hospitalizations N Thyroid Problems N GI Problems N Eating Disorder N Skin Problems N Anemia N MRSA exposure N Constipation N Mental Illness N Diabetes N Ovarian Cancer N Seizures/Epilepsy N Tuberculosis N Congestive Heart Failure (CHF) N Eczema N Abuse/Domestic Violence N Diverticulitis N Asthma N Reflux/GERD N Hepatitis N Heart Disease N Pulmonary Embolism N Hypertension N Chicken Pox N Autism Spectrum Disorder (ASD) N Osteoporosis N Gynecological HistoryNo gynecological history recorded. Obstetrics History GPAL:G 0 P 0 0 0 0 Immunizations Vaccine Type Date Status Note Provider Nam e and Address Organization Details Recorded Time COVID-19, mRNA, LNP-S, PF, 50 mcg/0.5 mL dose 1 completed Not Available [facility] 08/31/2022 21:31:35 COVID-19, mRNA, LNP-S, PF, 50 mcg/0.5 mL dose 1 completed Not Available [facility] 08/31/2022 21:31:35 influenza, unspecified formulation 1 completed Not Available [facility] 08/31/2022 21:31:35 Past Encounters Encounter ID Performer Location Encounter Start Date Encounter Closed Date Diagnosis/Indication Diagnosis SNOMED-CT Code Diagnosis ICD10 Code [id number] Austin A. Bigda, [place] [address] [place] [address] 04/25/2018 12:07:05 04/25/2018 12:35:32 Subclinical hypothyroidism 91306923 E03.9 Renewal of prescription 723260918 Z76.0 Fatigue 91560489 R53.83 [id number] Austin Flores DO [address] [place] [address] 12/30/2018 16:07:44 12/30/2018 16:38:07 Subclinical hypothyroidism 34392494 E03.9 Rheumatoid arthritis 698 34792 M06.9 Malaise and fatigue 2717 88504 R53.81 [id number] Austin Flores DO [address] [place] [address] 05/19/2019 12:13:27 05/22/2019 15:39:46 Anxiety 26471334 F41.9 Obsessive- compulsive disorder 869533714 F42.9 [id number] SONNY VILLARREAL [address] [place] [address] 11/14/2019 10:21:40 11/14/2019 11:07:14 Pre-surgery evaluation 620081261 Z01.818 [id number] Austin Flores DO [address] [place] [address] 12/12/2019 11:58:56 12/12/2019 13:47:32 Active or passive immunization 288593872 Z23 Adult heal th examination 235819321 Z00.01 Subclinica l hypothyroidism 91964642 E03.9 [id number] SONNY VILLARREAL [address] [place] [address] 04/23/2020 11:43:35 04/23/2020 13:35:32 Chronic granulomatous disease 632252248 D71 Pre-surger y evaluation 123796113 Z01.818 [id number] SONNY VILLARREAL [address] [place] [address] 09/10/2021 14:07:09 09/10/2021 15:21:02 Pre-surgery evaluation 637521763 Z01.818 Rheumatoid arthritis 698 68070 M06.9 Chronic gr anulomatous disease 088885443 D71 [id number] SONNY VILLARREAL [address] [address] 10/08/2021 08:25:53 10/08/2021 14:41:57 Labile essential hypertension 993105542 I10 Chronic gr anulomatous disease 755427544 D[address]-COVID-19 syndrome 2087714696 Z86.16 [id number] SONNY VILLARREAL [address] [address] 12/19/2021 16:12:10 12/19/2021 16:40:21 Hypothyroidism 75447305 E03.8 Cobalamin deficiency 190 630551 E53.8 Essential hypertension 33395638 I10 [id number] SONNY VILLARREAL [address] [address] 03/03/2022 09:59:25 03/03/2022 13:46:45 Pre-surgery evaluation 160777716 Z01.818 Anxiety 82099858 F41.1 [id number] SONNY VILLARREAL [address] [address] 07/27/2022 11:02:53 07/27/2022 13:15:33 Rheumatoid arthritis 10383192 M05.012 Chronic gr anulomatous disease 183142932 D71 Hematochezia 849254345 K 92.1 Post-acute COVID-19 1119 850977 U09.9 [id number] SONNY VILLARREAL [address] [address] 01/18/2023 11:14:19 01/18/2023 11:53:20 Hypothyroidism 56187471 E03.8 Pain of le ft knee joint 5454062299 50391 M25.562 [id number] SONNY VILLARREAL [address] [address] 03/26/2023 08:20:36 03/26/2023 13:55:20 Anxiety 09222293 F41.1 Rheumatoid arthritis 698 72735 M05.012 Chronic gr anulomatous disease 716242976 D71 [id number] SONNY VILLARREAL [address] [address] 04/19/2023 13:52:54 04/20/2023 10:45:14 Rosacea 383547752 L71.8 Vitamin D deficiency 347 03620 E55.9 Cobalamin deficiency 190 311118 E53.8 Adult heal th examination 504111731 Z00.00 Fatigue 86952672 R53.83 Anxiety 80815225 F41.1 [id number] Velvet Gaona [address] [address] 05/26/2023 11:12:14 05/26/2023 12:16:07 Hyperthyroidism 31152626 E05.90 Anxiety 55533323 F41.1 [id number] SONNY VILLARREAL [address] [address] 06/21/2023 09:30:47 06/21/2023 10:12:14 Palpitations 61040375 R00.2 Essential hypertension 68346273 I10 [id number] SONNY VILLARREAL [address] [address] 07/23/2023 10:03:14 07/23/2023 16:15:57 Depression screening 670380258 Z13.31 Gastroesop hageal reflux disease 443474132 K21.01 Hypothyroidism 51151453 E03.8 Health Concerns Section Related Observation LastModified by Organization Detai ls LastModified Time None Recorded Concern Status LastModified by Organization Details LastModified Time None Recorded Advance Directives Directive None Recorded Payers Encounter Date Sequence Insurance Name Policy Number Policy Lincoln Covered Member ID Lincoln Member ID Guarantor Name 03/26/2023 1 [facility] - DIRECT CONNECTORCARE TYPE I (HMO) [id number] Bharati Gallegos [id number] 1 Bharati Gallegos 04/19/2023 1 [employer] - DIRECT CONNECTORCARE TYPE I (HMO) [id number] Bharati A El [id number] 1 Bharati A El 05/26/2023 1 [employer] - DIRECT CONNECTORCARE TYPE I (HMO) [id number] Bharati A El [id number] Bharati A El 06/21/2023 1 [employer] - DIRECT CONNECTORCARE TYPE I (HMO) [id number] Bharati A El [id number] 1 Bharati A El 07/23/2023 1 [facility] [employer] - DIRECT CONNECTORCARE TYPE I (HMO) [id number] Bharati A El [id number] 1 Bharati A El Notes Date Note Type Note Provider Name and Address Organization Details Recorded Time 03/26/2023 text/html c/o anxiety The patient is participating in this appointment via telemedicine communication with a phone call/video calling service ([employer])The patient consents to use of these platforms in place of an in-person appointment due to either sick symptoms the patient is presenting with or current office closure due to COVID exposure in order to keep our office staff and patients safe the patient has been using low dose naltrexone from her specialistthe patient reports that since she started taking it she developed increased anxiety, OCD tendencies, appetite changes, sleep disturbances the patient also currently has COVID so she hasn't been able to leave the house since she is quarantiningthe patient feels like she is in a rut the patient reports she may have an aspect of seasonal depressionfeels very overwhelmed with her health problems will set up with short course ativan, doesn't use oftenhas half the script from last year still SONNY VILLARREAL [address], [place], [address], [facility] 03/26/2023 11:42:33 04/19/2023 text/html ER f/u the patient was recently in the ER for COVID-19 infectionthe patient reports that she is doing well for the most part does report that she is having more anxiety and depression surrounding her health since she keeps getting sick and having COVID will do a full lab panelthe patient agreed and will have everything drawn today for me refilled the doxyand will have her use the gel inbetween refill of ativan SONNY VILLARREAL [address] [facility],[address], [place], [address], [facility] 04/19/2023 14:42:40 05/26/2023 text/html c/o walk-in elevated HR and BPthe patient reports that her highest BP was 150/90 recentlythe patient is currently back on her levothyroxine because the patient reports that she feels very poorthe patient reports that she is having will put in STAT referralto prompt sooner appt flushing, tachycardia, BP elevation, palpitations, hair loss, fatigue, brain fog, bowel changes, rashes, facial rash, no sob SONNY VILLARREAL [address] [facility],[place], [address], [facility] 05/26/2023 11:45:21 06/21/2023 text/html f/u BP check the patient is doing better with the thyroidshe has been seeing her epic ambulatory specialists her US renal artery was negativewaiting on sleep study her bp this morning was 141/90has been noticing that it is elevated at home but randomly, not consistently high recheck today was also really good, 121/82 right armwill f/u after cardiac testing SONNY VILLARREAL [address] [facility], [place], [address], [facility] 06/21/2023 09:52:19 07/23/2023 text/html f/u 1 mos the patient recently saw Dr. Crawford patient reports that she would be taking her thyroid med 5 days, still the 75 mcg the patient reports that she finished her holter, came off early than intendedthe patient reports that the monitor the patient reports that she needs another sleep study since on of the monitors got triggered she has a f/u in september with her needs fu US renal for the septated cyst6 mos, pt aware, renal artery looked good been having more burning, with increased symptoms of GERDwill send up with endoscope SONNY VILLARREAL [address] [facility],[address], [place], [address], [facility] 07/23/2023 10:33:14 OBGyn Episode No OBEpisode recorded.
== END 2024-02-07 11:04 | disposition home or self-care (01) ==
PROVIDERS: PCP Student in an Organized Health Care Education/Training Program; Visit Provider Physician Assistant
DX: M43.16 Spondylolisthesis, lumbar region (principal)
CPT/HCPCS: 99204

== ENCOUNTER → 2024-02-07 08:52 | Outpatient (BNVA) | payer OTHER, SELFPAY | PROVIDERS: PCP Student in an Organized Health Care Education/Training Program; Visit Provider Physician Assistant | DX: M43.16 Spondylolisthesis, lumbar region (principal) | CPT/HCPCS: 99202 ==

== ENCOUNTER 2024-02-11 12:54 | Outpatient (AMB) | payer OTHER, SELFPAY ==
--- OUTSIDE RECORDS SUMMARY | 2024-02-11 12:56 | XMS_ITS ---
Author Organization [facility] Address [address] [address] Care Team Providers Care Industrial Maintenance Electrician Name Role Phone Austin Flores DO Primary Care Provider MADDIE Ghosh Unavailable [phone] ALLERGIES Allergen (clinical drug ingredient) Drug/Non Drug [...] 1 tablet Orally Once a day Not-Taking Hobfpjwh-Itmuorlwk-Wjhjeca h 3.5-54254-4.1 1 drop into affected eye Ophthalmic Four times a day Not-Taking Nystatin 627097 UNIT/ML 4 mL Mouth/Throa t Four times [...] 08/06/2023 Encounters Encounter Location Date Provider Diagnosis [facility] [address] [facility] [address] [place] [address] 08/06/2023 MADDIE WEN Rheumatoid arthritis without rheumatoid [...] * Honey PECKaDOB:1965 ([age] yo F)Acc No.[id number]:08/06/2023 Progress Note Patient:??Bharati PECK Provider:??Maddie Wen DPM :1965?Age:57 Y?Sex:Fe male Date:08/06/2023 Address:[address] [place], [place] [address] Pcp:Austin Flores, DO Subjective: * Chief Complaints: [...] to dissolve Orally Once a day Nystatin 774161 UNIT/ML Suspension 4 mL Mouth/Throat Four times a day Msmfanle-Jicrhluzp-Qjrgbmew 3.5-98596-6.1 Suspension 1 drop into affected eye Ophthalmic [...] dissolve Orally Once a day Not-Taking Nystatin 435590 UNIT/ML Suspension 4 mL Mouth/Throat Four times a day Not-Taking Eaftvrit-Kmhfxkfkq-Akmnwqno 3.5-81918-0.1 Suspension 1 drop into affected eye Ophthalmic [...] bilaterally, protective sensation intact 10/10 with 5.07 Naper Leila bilaterally, vibratory sensation with tuning fork [...] Up:??prn * Billing Information: * Visit Code:?? 86197 Office Visit, Est Pt., Level 3. * [...] bilaterally, protective sensation intact 10/10 with 5.07 Naper Leila bilaterally, vibratory sensation with tuning fork [...]
--- OUTSIDE RECORDS SUMMARY | 2024-02-11 12:56 | XMS_ITS ---
Author Organization [facility] Address [address] [address] Care Team Providers Care Fisher Trot Line Name Role Phone Austin Flores DO Primary Care Provider BERNADINE Ghosh [phone] REASON FOR VISIT orthotics Encounters Encounter Location Date Provider Diagnosis [facility] [address] [address] 05/28/2023 BERNADINE SANCHEZ PLAN OF TREATMENT No Information Progress Notes * Vinh PECKB:1965 ([age] yo F)Acc No.[id number]:05/28/2023 Patient:??CISCOHoneya :1965?Age:57 Y?Sex:Fe male Address:[address] [place] [address] * true * Date:??
--- OUTSIDE RECORDS SUMMARY | 2024-02-11 12:56 | XMS_ITS ---
Author Organization [facility] Address [address] [address] Care Team Providers Care Civil Engineering Designer Name Role Phone Austin Flores DO Primary Care Provider BERNADINE Ghosh [phone] REASON FOR VISIT Denied Orthotics Encounters Encounter Location Date Provider Diagnosis [facility] [address] [address] 05/27/2023 BERNADINE SANCHEZ PLAN OF TREATMENT No Information Progress Notes * Vinh PECKB:1965 ([age] yo F)Acc No.[id number]:05/27/2023 Patient:??CISCOHoneya :1965?Age:57 Y?Sex:Fe male Address:[address] [place] [address] * true * Date:??
--- OUTSIDE RECORDS SUMMARY | 2024-02-11 12:57 | XMS_ITS | Data Portability ---
Author Organization [facility] Home Service Address [address] [place] [address] Assessment Encounter Date Assessment Date Assessment LastModified by Organization Details LastModified Time 03/26/2023 03/26/2023 Patient agreed and verbally consents to this audio and video Telehealth appt via a secure platform [email or web address] Not available 03/26/2023 11:40:25 Plan of Treatment Reminders Order Date Submit Date Provider Last Modified By Organization Details Last Modified Time Details Appointments None recorded. Lab CMP, serum or plasma 2023 [facility], [address] [place] [address], [address], 4 11:20:33 lipid panel, blood 2023 024 [facility], [address] [place] [address], [address], 4 14:37:13 TSH + free T4, serum 2023 024 [facility], [address] [place] [address], [address], 4 11:27:26 hemoglobin A1c, QN, blood 2023 024 [facility], [address] [place] [address], [address], 4 14:37:14 iron + TIBC + ferritin, serum 2023 024 [facility], [address] [place] [address], [address], 4 14:37:13 ESR (erythrocy te sedimentat ion rate), blood 2023 [facility], [address] [place] [address], [address], 4 14:37:13 C-reactive protein, quantitati ve, serum or plasma 2023 [facility], [address] [place] [address], [address], 4 14:37:13 T3, total, serum 2023 [facility], [address] [place] [address], [address], 4 11:23:31 thyroid peroxidase (tpo) Ab, serum 2023 024 [facility], [address] [place] [address], [address], 4 14:37:13 cortisol, serum or plasma 2023 024 [facility], [address] [place] [address], [address], 4 14:37:13 insulin, serum 2023 024 [facility], [address] [place] [address], [address], 4 14:37:13 PTH (parathyro id hormone), intact + calcium, serum or plasma 2023 024 [facility], [address] [place] [address], [address], 4 14:37:14 igf-1 (insulin-l sathish growth factor), serum 2023 024 [facility], [address] [place] [address], 7[address], 4 11:42:28 vitamin D, 25-hydroxy , total, serum 2023 024 [facility], [address] [place] [address], [address], 4 14:37:14 homocystei ne, serum or plasma 2023 024 [facility], [address] [place] [address], [address], 4 11:46:58 vitamin B12 + folate, serum or blood 2023 024 [facility], [address] [place] [address], [address], 4 14:37:13 CBC w/ auto diff 2023 024 [facility], [address] [place] [address], [address], 4 14:37:14 TSH, serum or plasma 2023 024 [facility], [address] [place] [address], 6[address], 4 11:17:38 T4, free, serum 2023 024 [facility], [address] [place] [address], 18[address], 4 11:17:38 T3, free, serum or plasma 2023 024 [facility], [address] [place] [address], 09[address], 4 11:17:38 tsi (thyroid-s timulating immunoglob ulin), serum 2023 024 [facility], [address] [place] [address], [address], 4 11:30:40 thyroid peroxidase (tpo) Ab, serum 2023 024 [facility], [address] [place] [address], 412[address], 4 11:44:40 ESR (erythrocy te sedimentat ion rate), blood 2023 [facility], [address] [place] [address], 35[address], 4 11:44:41 C reactive protein, QN, serum or plasma 2023 024 [facility], [address] [place] [address], 932[address], 4 11:44:41 PTH (parathyro id hormone), intact + calcium, serum or plasma 2023 024 [facility], [address] [place] [address], 45[address], 4 11:17:38 phosphorus , serum or plasma 2023 024 [facility], [address] [place] [address], [address], 4 11:44:41 Referral sleep medicine referral 2023 024 [facility], [address] [place] [address], [address], 4 08:10:47 endocrinol ogy referral - elevated BP, tachycardi a, hair loss, fatigue, increased anxiety, brain fog, digestion issues, loss stools, constipati on, sweats and palpitatio ns 2023 [facility] , [address] [facility], [place], [address], 11:14:38 gastroente rologist referral - Per call to [facility] at [phone], spoke to Mey Bartlett who advised no referral is required. Call reference number: [id number] 4. 2023 [email or web address] [place] [address] [facility], [address] [place] [address], [address], 08:25:49 Procedures None recorded. Surgeries None recorded. Imaging holter monitor 2023 024 [email or web address] Not available 09:51:36 US, echocardio gram 2023 024 [email or web address] [facility], [address] [place], [address], 08:52:02 Medication Orders lorazepam 0.5 mg tablet 2023 024 [facility], [address] [place], [address], 09:37:20 doxycyclin e monohydrat e 100 mg capsule 2023 024 [facility], [address] [place], [address], 09:36:48 metronidaz ole 0.75 % topical cream 2023 024 [email or web address] [facility], [address] [place], [address], 09:37:12 lorazepam 0.5 mg tablet 2023 024 [facility], [address] [place], [address], 4 09:37:20 lorazepam 0.5 mg tablet 2023 024 [email or web address] [facility], [address] [place], [address], 4 09:37:20 clonidine HCl 0.1 mg tablet 2023 024 [email or web address] [facility], [address] [place], [address], 4 10:32:48 Patient TargetsNo targets recorded. Patient InstructionsNo instructions recorded. Reason for Referral Sleep Medicine Referral for Fatigue chronic fatigue, snoring, possible sleep apnea Referring Physician: Harleen Llanos, Internal Medicine, Encounter Date: 04/19/2023 Endocrinology Referral for H yperthyroidism going back and forth between hypo and hyper, feels incredibly poor elevated BP, tachycardia, hair loss, fatigue, increased anxiety, brain fog, digestion issues, loss stools, constipation, sweats and palpitations Referring Physician: Harleen Llanos, Internal Medicine, Encounter Date: 05/26/2023 [facility] Referral for Gastroesophageal reflux disease GERD with esophagitis, hx of B12 def, taking prilosec due to severity of symptoms Per call to [facility] at [phone], spoke to Mey Bartlett who advised no referral is required. Call reference number: [id number]. Referring Physician: Harleen Llanos, Internal Medicine, Encounter Date: 07/23/2023 Results Created Date Observation Date Name Description Value Unit Range Abnormal Flag Note LastModifiedBy Organization Detail LastModifiedTime 06/17/19 24 06/17/2023 US, duple x, renal arter y No observ ation record ed. [email or web address] [facility] [address] [place], [address], 06/18/2023 09:31:08 06/28/19 24 06/17/2023 US, duple x, renal arter y No observ ation record ed. [facility] [address] [place] [address], [address], 06/28/2023 08:44:36 07/09/19 24 07/09/2019 event monit or No observ ation record ed. [address], [address], 07/12/2023 08:40:15 07/11/19 24 07/09/2023 event monit or No observ ation record ed. [address], [address], 07/12/2023 08:40:16 07/11/19 24 07/11/2023 event monit or No observ ation record ed. [facility] [employer] [address] [place] [address], [place], [address], 07/12/2023 08:40:16 07/13/19 24 07/13/2023 event monit or No observ ation record ed. [address], [address], 07/14/2023 08:51:22 07/29/19 24 07/27/2023 augustin r monit or No observ ation record ed. [email or web address] [place] [address], [address], 07/30/2023 10:53:26 Result Notes None recorded. Problems Name Problem SNOMED Code Status Onset Date Resolution Date Notes Provider Name and Address Organization Details Recorded Time Sg mendenhallyro idism 40901694 Active 2018 Not Available [facility] 3 21:31:35 Rheumatoi d arthritis 70025456 Active 2018 Not Available [facility] 3 21:31:35 Dysfuncti on of posterior tibial tendon 327451850624 105 Active 2018 Not Available [facility] 3 21:31:35 Depressiv e disorder 28219795 Active 2018 Not Available [facility] 3 21:31:35 Anxiety 95826459 Active 2018 Not Available [facility] 3 21:31:35 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 726858481 Active 2018 Not Available [facility] 3 21:31:35 Chronic granuloma tous disease 345234404 Active 2018 Not Available [facility] 3 21:31:35 Labile essential hypertens ion 791048113 Active 2021 Not Available [facility] 3 21:31:35 Essential hypertens ion 93839309 Active 2021 Not Available [facility] 3 21:31:35 Hypothyro idism 18717670 Active 2021 Not Available [facility] 3 21:31:35 Cobalamin deficienc y 203988568 Active 2021 Not Available [facility] 3 21:31:35 Mass of soft tissue 516697551 Active 2022 Not Available [facility] 3 21:31:35 Lipoma of skin 621811017 Active 2022 Not Available [facility] 3 21:31:35 Acute bronchiti s 45960347 Active 2022 Not Available [facility] 3 21:31:34 Pneumonia 460643418 Active 2022 Not Available [facility] 3 21:31:35 Candidias is of mouth 64613532 Active 2022 Not Available [facility] 3 21:31:35 Hematoche kriss 736158681 Active 2022 Not Available [facility] 3 21:31:35 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 7805945688 Active 2022 Not Available [facility] 3 21:31:35 Pain of left knee joint 869840785609 107 Active 2022 SONNY VILLARREAL [address] [place], [address], [facility] 3 11:44:09 COVID-19 594721014 Active 2023 SONNY VILLARREAL [address] [place], [address], [facility] 4 11:04:18 Rosacea 779227462 Active 2023 SONNY VILLARREAL [address] [place] [address], [address], [facility] 4 09:29:17 Vitamin D deficienc y 01214134 Active 2023 SONNY VILLARREAL [address] [place] [address], [address], [facility] 4 14:28:04 Fatigue 94434532 Active 2023 SONNY VILLARREAL [address] [place] [address], [address], [facility] 4 14:30:53 Subclinic al hyperthyr oidism 159083404 Active 2023 SONNY VILLARREAL [address] [place] [address], [address], [facility] 4 10:50:51 Hyperthyr oidism 23654371 Active 2023 SONNY VILLARREAL [address] [place] [address], [address], [facility] 4 16:08:36 Hypercalc emia 51094746 Active 2023 SONNY VILLARREAL [address] [place] [address], [address], [facility] 4 12:07:15 Resistant hypertens maria r disorder 431136815099 109 Active 2023 SONNY VILLARREAL [address] [place] [address], [address], [facility] 4 16:20:00 Palpitati ons 96614866 Active 2023 SONNY VILLARREAL [address] [place], [address], [facility] 4 09:43:16 Gastroeso phageal reflux disease 104537626 Active 2023 SONNY VILLARREAL [address] [place], [address], [facility] 4 10:22:18 Acute sinusitis 22359314 Active 2023 SONNY VILLARREAL [address] [place], [address], [facility] 4 11:48:04 Notes:Some problems listed i n Document: #[id number] could not be added to this patient's chart. Please review this document and add these problems to the patient's chart manually as needed. Problem Notes None recorded. Procedures Surgical History Date Name Laterality Status Provider Name and Address Organization Details Recorded Time 05/17/19 19 Colonoscopy completed Austin Flores DO [address] [place], [address], [facility] 05/17/2018 11:22:51 Imaging Results Imaging Date Name Status LastModified by [facility] Details LastModified Time 06/17/2023 US, duplex, renal artery completed [email or web address] [place] [address] Diagnostic Imaging [address] [place] [address], [address], 06/18/2023 09:31:08 06/17/2023 [facility], duplex, [facility] [address] [place] [address], [address], 06/28/2023 08:44:36 07/09/2019 event monitor completed [address], [address], 07/12/2023 08:40:15 07/09/2023 event monitor completed [address] [place], [address], 07/12/2023 08:40:16 07/11/2023 event monitor completed [email or web address] [facility] [address] [address], [place], [address], 07/12/2023 08:40:16 07/13/2023 event monitor completed [email or web address] [address], [address], 07/14/2023 08:51:22 07/27/2023 holter monitor completed [email or web address] [address], [address], 07/30/2023 10:53:26 Procedure Notes None recorded. Medical Equipment None Reported. Allergies Allergen ID Allergen Name Allergen Category Reaction Reaction Severity Criticality Documentation Date Start Date Code Code System Note Provider Name and Address Organization Details Recorded Time 3580 Enbrel medicatio n Not available Not available Not available 12/30/2018 50010 1 RxNorm Alyson camacho [facility] 9 16:14:46 3581 Imuran medicatio n Not available Not available Not available 12/30/201816770 9 RxNorm Alyson camacho [facility] 9 16:14:54 Medications Name Sig [...] Updated DateTime 4 147.32 cm 27.2 kg/m2 43361.0 1 g 92 /min 99 % 99 % 124 mm[Hg] 78 mm[Hg] Marianela Nicole [facility] 4 14:05:02 Date Recorded Body height Heart rate Oxygen saturation Oxygen saturation in Arterial blood by Pulse oximetry Systolic blood pressure Diastolic blood pressure Provider Name and Address Organization Details Last Updated DateTime 4 147.32 cm 112 /min 98 % 98 % 140 mm[Hg] 100 mm[Hg] Abdoul Damon [facility] 4 11:20:10 Date Recorded Body height Body mass index (BMI) Body weight Heart rate Oxygen saturation Oxygen saturation in Arterial blood by Pulse oximetry Systolic blood pressure Diastolic blood pressure Provider Name and Address Organization Details Last Updated DateTime 4 147.32 cm 27.4 kg/m2 21486.6 g 87 /min 97 % 97 % 128 mm[Hg] 80 mm[Hg] Marianela Nicole [facility] 4 09:38:37 Date Recorded Body height Body mass index (BMI) Body weight Heart rate Oxygen saturation Oxygen saturation in Arterial blood by Pulse oximetry Systolic blood pressure Diastolic blood pressure Provider Name and Address Organization Details Last Updated DateTime 4 147.32 cm 27.2 kg/m2 82684.0 1 g 77 /min 98 % 98 % 134 mm[Hg] 86 mm[Hg] Sheryl Jeronimo [facility] 4 10:07:55 Social History Question Answer Notes LastModified by Organizat ion Details LastModified Time Tobacco Smoking Status Former Smoker Not Available [facility] 12/26/2019 03:36:23 What Was The Date Of Your Most Recent Tobacco Screening? 07/23/2023 [email or web address] Information not available 07/23/2023 Do You Or Have You Ever Used Any Other Forms Of Tobacco Or Nicotine? No [email or web address] Information not available 10/08/2021 Sex: Unknown Functional [...] mcg/0.5 mL dose 1 completed Not Available [facility] 08/31/2022 21:31:35 COVID-19, mRNA, LNP-S, PF, 50 mcg/0.5 mL dose 1 completed Not Available [facility] 08/31/2022 21:31:35 influenza, unspecified formulation 1 completed Not Available [facility] 08/31/2022 21:31:35 Past Encounters Encounter ID Performer Location Encounter Start Date Encounter Closed Date Diagnosis/Indication Diagnosis SNOMED-CT Code Diagnosis ICD10 Code [id number] Austin Flores DO [facility] Internal Medicine [address] [place] [address],[place] ite D [facility] [address] 04/25/2018 12:07:05 04/25/2018 12:35:32 Subclinical hypothyroidism 21329631 E03.9 Renewal of prescription 836009639 Z76.0 Fatigue 63026744 R53.83 [id number] Austin Flores [facility] Internal [address] [place] [address] 12/30/2018 16:07:44 12/30/2018 16:38:07 Subclinical hypothyroidism 86939423 E03.9 Rheumatoid arthritis 698 62471 M06.9 Malaise and fatigue 2717 26392 R53.81 [id number] Austin Flores [facility] Internal [address] [place] [address] 05/19/2019 12:13:27 05/22/2019 15:39:46 Anxiety 36534045 F41.9 Obsessive- compulsive disorder 189409534 F42.9 [id number] SONNY VILLARREAL [facility] Internal Medicine [address] [place] [address],[place] [address] 11/14/2019 10:21:40 11/14/2019 11:07:14 Pre-surgery evaluation 350153670 Z01.818 [id number] Austin Flores [address] [facility] [place] [address] 12/12/2019 11:58:56 12/12/2019 13:47:32 Active or passive immunization 272787947 Z23 Adult [facility] th examination 623864209 Z00.01 Subclinica l hypothyroidism 80614894 E03.9 [id number] SONNY VILLARREAL [facility] Internal Medicine [address] [place], [place] [address] [address] 04/23/2020 11:43:35 04/23/2020 13:35:32 Chronic granulomatous disease 287196197 D71 Pre-surger y evaluation 826468912 Z01.818 [id number] SONNY VILLARREAL [facility] Internal Medicine [address] [place], [place] [address] [facility] [place] [address] 09/10/2021 14:07:09 09/10/2021 15:21:02 Pre-surgery evaluation 176801860 Z01.818 Rheumatoid arthritis 698 29833 M06.9 Chronic gr anulomatous disease 233588611 D71 [id number] SONNY VILLARREAL [facility] Internal Medicine [address] [place], [place] [address] [address] 10/08/2021 08:25:53 10/08/2021 14:41:57 Labile essential hypertension 048658067 I10 Chronic gr anulomatous disease 004732201 D[address]-COVID-19 syndrome 7760641584 Z86.16 [id number] SONNY VILLARREAL [facility] Internal Medicine [address] [place] [address] [place] [address] 12/19/2021 16:12:10 12/19/2021 16:40:21 Hypothyroidism 97099114 E03.8 Cobalamin deficiency 190 263302 E53.8 Essential hypertension 22034581 I10 [id number] SONNY VILLARREAL [facility] Medicine [address] [place] [address] [place] [address] 03/03/2022 09:59:25 03/03/2022 13:46:45 Pre-surgery evaluation 956651040 Z01.818 Anxiety 15660036 F41.1 [id number] SONNY VILLARREAL [facility] Medicine [address] [place] [address] [place] [address] 07/27/2022 11:02:53 07/27/2022 13:15:33 Rheumatoid arthritis 18835136 M05.012 Chronic gr anulomatous disease 405829142 D71 Hematochezia 682680750 K 92.1 Post-acute COVID-19 1119 379268 U09.9 [id number] SONNY VILLARREAL [facility] Internal Medicine [address] [place] [address] [place] [address] 01/18/2023 11:14:19 01/18/2023 11:53:20 Hypothyroidism 56409852 E03.8 Pain of le ft knee joint 4439475114 10357 M25.562 [id number] SONNY VILLARREAL [facility] Internal Medicine [address] [facility],[place] [address] 03/26/2023 08:20:36 03/26/2023 13:55:20 Anxiety 34130124 F41.1 Rheumatoid arthritis 698 68671 M05.012 Chronic gr anulomatous disease 929220151 D71 [id number] SONNY VILLARREAL [facility] Internal Medicine [address] [facility],[place] [address] 04/19/2023 13:52:54 04/20/2023 10:45:14 Rosacea 247962285 L71.8 Vitamin D deficiency 347 88543 E55.9 Cobalamin deficiency 190 529358 E53.8 Adult [facility] th examination 626847462 Z00.00 Fatigue 49502184 R53.83 Anxiety 05452982 F41.1 [id number] Velvet Jimenez [facility] Internal Medicine [address] [facility],[place] [address] 05/26/2023 11:12:14 05/26/2023 12:16:07 Hyperthyroidism 23472027 E05.90 Anxiety 24343721 F41.1 [id number] SONNY VILLARREAL [facility] Internal Medicine [address] [place] [address],[place] [address] 06/21/2023 09:30:47 06/21/2023 10:12:14 Palpitations 45274977 R00.2 Essential hypertension 67888542 I10 [id number] SONNY VILLARREAL [facility] Medicine [address] [place] [address],[place] [address] 07/23/2023 10:03:14 07/23/2023 16:15:57 Depression screening 073039575 Z13.31 Gastroesop hageal reflux disease 110726631 K21.01 Hypothyroidism 36953212 E03.8 Health Concerns Section Related Observation LastModified by Organization Detai ls LastModified Time None Recorded Concern Status LastModified by Organization Details LastModified Time None Recorded Advance Directives Directive None Recorded Payers Encounter Date Sequence Insurance Name Policy Number Policy Lincoln Covered Member ID Lincoln Member ID Guarantor Name 03/26/2023 1 [facility] I (HMO) [id number] Bharati A El [id number] Bharati A El 04/19/2023 1 [facility] CONNE[facility]ARE TYPE I (HMO) [id number] Bharati A El [id number] 1 Bharati A El 05/26/2023 1 [facility] DIRECT CONNECTORCARE TYPE I (HMO) [id number] Bharati A El [id number] 1 Bharati A El 06/21/2023 1 [facility] - DIRECT CONNECTORCARE TYPE I (HMO) [id number] Bharati A El [id number] 1 Bharati A El 07/23/2023 1 [facility] - DIRECT CONNECTORCARE TYPE I (HMO) [id number] Bharati A El [id number] 1 Bharati Debbie El Notes Date Note Type Note Provider Name a nd Address Organization Details Recorded Time 4 text/html c/o anxiety The patient is participating in this appointment via telemedicine communication with a phone call/video calling service ([employer])The patient consents to use of these platforms [...] script from last year still SONNY VILLARREAL [address] [facility], [place], [address], [facility] 03/26/2023 11:42:33 4 text/html ER f/u the patient was recently [...] gel inbetween refill of ativan SONNY VILLARREAL [address] [place], [address], [facility] 04/19/2023 14:42:40 4 text/html c/o walk-in elevated HR and BPthe [...] rashes, facial rash, no sob SONNY VILLARREAL [address] [place], [address], [facility] 05/26/2023 11:45:21 4 text/html f/u BP check the patient is doing better with the thyroidshe has been seeing her manager technical her US renal artery was negativewaiting on sleep study her bp this morning was 141/90has been noticing that it is elevated at home but randomly, not consistently high recheck today was also really good, 121/82 right armwill f/u after cardiac testing SONNY VILLARREAL [address] [place], [address], [facility] 06/21/2023 09:52:19 4 text/html f/u 1 mos the patient recently [...] GERDwill send up with endoscope SONNY VILLARREAL [address] [place], [address], [facility] 07/23/2023 10:33:14 OBGyn Episode No OBEpisode recorded.
--- OUTSIDE RECORDS SUMMARY | 2024-02-11 12:57 | XMS_ITS | Patient Health Record ---
Author Organization [facility] Address [address] [address] Care Team Providers Care Psychology Teacher Name Role Phone Austin Flores DO Primary Care Provider BERNADINE Ghosh Unavailable [phone] ALLERGIES Allergen (clinical drug ingredient) Drug/Non Drug Allergy documented on EMR Reaction Allergy Type Onset Date Status Information temporarily unavailable Enbrel Unknown Drug Allergy Active Information temporarily unavailable Imuran Unknown Drug Allergy Active REASON FOR REFERRAL No Information MEDICATIONS Medication [...] 1 tablet Orally Once a day Active Yibfndqp-Uphaormzn-Qgrtznb h [id number] 1 drop into affected eye Ophthalmic Four times a day Not-Taking predniSONE 10 MG 1 tablet Orally Once a day 7MG Active Nystatin 914421 UNIT/ML 4 mL Mouth/Throa t Four times a day Not-Taking PROBLEMS Problem Type ICD Code Onset Dates Problem Status W/U Status Risk SNOMED Code Notes Problem Rheumatoid arthritis without rheumatoid factor, right ankle and foot (M06.071) Active confirmed 45236113770932085 Problem Rheumatoid arthritis without rheumatoid factor, left ankle and foot (M06.072) Active confirmed 880289792 VITAL SIGNS Heart Rate 99 /min 08/06/2023 Temperature 97.1 degrees Fahrenheit 08/06/2023 Respiratory Rate 12 /min 08/06/2023 Height 4ft 11.5in in 08/06/2023 Weight 132.0 lbs 08/06/2023 BMI 26.21 kg/m2 08/06/2023 Encounters Encounter Location Date Provider Diagnosis [facility] [address] 03/01/2023 BERNADINE SANCHEZ Rheumatoid arthritis without rheumatoid factor, right ankle and foot M06.071 ; Rheumatoid arthritis without rheumatoid factor, left ankle and foot M06.072 ; Acquired adductovarus rotation of toe, 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 ; Adductovarus rotation of toe, acquired, left M20.5X2 ; Pain in right foot M79.671 and Pain in left foot M79.672 [facility] [address] [address] 08/06/2023 BERNADINE SANCHEZ Rheumatoid arthritis without rheumatoid factor, right ankle and foot M06.071 ; Rheumatoid arthritis without rheumatoid factor, left ankle and foot M06.072 ; Acquired adductovarus rotation of toe, 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 ; Adductovarus rotation of toe, acquired, left M20.5X2 ; Pain in right foot M79.671 and Pain in left foot M79.672 [facility] [address] [address] 03/02/2023 BERNADINE SANCHEZ [facility] [address] [address] 03/02/2023 BERNADINE SANCHEZ [facility] [address] [address] 04/28/2023 BERNADINE SANCHEZ [facility] [address] [address] 05/27/2023 BERNADINE SANCHEZ [facility] [address] [address] 05/28/2023 BERNADINE SANCHEZ ASSESSMENTS Encounter Date Diagnosis [...] Insured Coverage Start Date Coverage End Date [facility] [[email or web address]] [place] [facility] [employer] (REF REQ) [address] [place] [address] [phone] [id number] Bharati Gallegos Self - patient is the [...]
--- NOTE | 2024-02-11 13:13 | A.SPINEOV_ITS ---
Intake Visit Reasons: Discuss sx Intake Note: Ms. Gallegos is here today to Discuss Surgery [facility] Justice Required: No Allergies etanercept [From Enbrel] Allergy (Severe, Verified 02/07/24 09:06) Rash Assessment & Plan Assessment & Plan (1) Spondylolisthesis, lumbar region: Code(s): M43.16 - Spondylolisthesis, lumbar region Category: Medical Plan Mrs Gallegos came back in today for another discussion about surgery. Specifically L4-5 oblique lumbar interbody fusion. All pertinent risks and benefits were discussed as well as recovery. The patient would like to think about her options, she is trying to process all of the information she has been given. She is going to seek out a 2nd opinion which is certainly reasonable. She was asking about conservative measures, and we discussed that with the spine showing signs of instability, there is very limited role with that, but that if she wants to talk to the [place] [facility] people about injections or medications she is certainly welcome to. We want her to go into the process of surgery feeling that she is been given all the options. I also ordered her cervical MRI just as a precautionary measure because of the complaints of numbness in her arms. Dr. Chavarria met with her as well and reviewed the procedure, including risks, complications etc.. Total amount of time spent in this visit was 20 minutes in discussion of symptoms, lumbar MRI, CT and x-ray imaging results and subsequent plan of care Pato Chavarria MD,PhD [facility] Orders: Orders MR cervical spine wo con Today M43.16 - Spondylolisthesis, lumbar region Coding Level of Care Code Est Pt Level 3 (71287) Diagnoses Spondylolisthesis, lumbar region M43.16
== END 2024-02-11 15:01 | disposition home or self-care (01) ==
PROVIDERS: PCP Student in an Organized Health Care Education/Training Program; Visit Provider Physician Assistant
DX: M43.16 Spondylolisthesis, lumbar region (principal)
CPT/HCPCS: 99213

== ENCOUNTER → 2024-02-11 12:54 | Outpatient (BNVA) | payer OTHER, SELFPAY | PROVIDERS: PCP Student in an Organized Health Care Education/Training Program; Visit Provider Physician Assistant | DX: M43.16 Spondylolisthesis, lumbar region (principal) | CPT/HCPCS: 99212 ==